=== PATIENT | male | born 1950 | race Caucasian/White ===

== ENCOUNTER 2019-12-14 19:25 | Inpatient (IN) | payer OTHER, MEDICARE, SELFPAY ==
[2019-12-14 19:36] VITALS: BP 92/55; PULSE 94; RESP 18; TEMP 36.8; O2SAT 91; BMI 15.6
--- NOTE | 2019-12-14 19:42 | ED_ITS ---
Entered by Sweta Gordon, acting as scribe for Rashim Ponce HPI - SOB/Dyspnea General: Chief Complaint: Shortness of Breath/Dyspnea Stated Complaint: SOB/COUGH Time Seen by Provider: 12/14/19 19:40 History of Present Illness: HPI Narrative: 69 yo m came to the er for shortness of breath and cough. Onset was today this afternoon Pt states that she has been wheezing, shortness of breath and cough. Pts family states that pt has had lunch cancer and is diabetic. Pt is cancer free at this time. Pt has oxygen at home as needed. Family states that pt gets pneumonia at least 3 times a year. MD elicited complaint: shortness of breath and cough Pertinent past history: other (feeding tube) Onset (ago): day(s) (today) Timing: constant Severity: mild Exacerbating factors: lying flat Relieving factors: oxygen and rest Associated symptoms: Reports orthopnea and other (wheezing); Deny abdominal pain, chest congestion, chest pain, diaphoresis, dizziness, extremity pain, fever(s), hemoptysis, nausea, palpitations, polydipsia, syncope or vomiting Related Data: Home oxygen amount: as needed at night Review of Systems General: Reports: other (negative unless marked) Const: Denies: fever, chills, body aches, fatigue, malaise or diaphoresis Eyes: Denies: change in vision or blurry vision ENMT: Denies: throat pain, painful swallowing, hoarseness, ear pain, ear discharge, Change in hearing or nasal discharge Card: Reports: shortness of breath on exertion and shortness of breath when lying down; Denies: chest pain, palpitations, irregular heart rhythm, syncope or pre-syncope Resp: Reports: shortness of breath, productive cough and wheezing; Denies: non-productive cough, coughing up blood or chest congestion GI: Denies: abdominal pain, nausea, vomiting, vomiting blood, coffee grounds in vomit, diarrhea, constipation, cramping, blood in stool or black tarry stool : Denies: flank pain, difficulty urinating, painful urination, urinary frequency, urinary urgency, decreased urine ouput, urinary incontinence or blood in urine Musc: Denies: neck pain, back pain, extremity pain, extremity swelling, joint pain, joint swelling, joint warmth or joint stiffness Skin/Breast: Denies: rash, skin tenderness or yellow skin Neuro: Denies: headache, numbness in extremities, weakness in extremities, changes in sensation, lack of coordination, difficulty walking, dizziness, vertigo or confusion Endo: Denies: excessive thirst, tired all the time, cold intolerance, excessive sweating, flushing or hot flashes Manan/Lymph: Denies: easy bruising, easy bleeding, petechiae or enlarged lymph nodes All/Imm: Denies: hives, throat swelling, tongue swelling, facial swelling or acute wheezing PFSH ED PFSH: Statuses (acute, chronic, etc) shown below reflect problem list status as previously entered and may not be historically accurate Social History Smoking and tobacco status: never smoked Physical Exam Const: COMMON NORMALS: oriented x3, no limitations, healthy appearing and well nourished; apparent distress EXAM LIMITATIONS: no altered mental status GENERAL APPEARANCE: cooperative, well kempt and well developed ORIENTATION/CONSCIOUSNESS: Yes awake HENMT: COMMON NORMALS: normocephalic, head/scalp atraumatic, hearing grossly normal bilaterally, external ears normal, EAC's normal, external nose normal and moist oral mucous membranes HEAD & SCALP: normal to inspection, normocephalic and atraumatic FACE & SINUS: normal facial exam and face symmetric NOSE: external nose normal and nares normal EXTERNAL EAR: Yes external ears normal EXTERNAL AUDITORY CANAL: EAC's normal MOUTH: oral and palatal mucosa normal and tongue normal Eye: COMMON NORMALS: PERRL, EOMs intact bilaterally, conjunctivae normal and no scleral icterus GENERAL EYE: normal appearance of both eyes and normal light reflex CONJUNCTIVA: Yes conjunctivae normal SCLERA: sclerae normal CORNEA: Yes corneas normal PUPIL: Yes PERRL DIRECT OPHTHALMOSCOPY: Yes normal light reflex Neck/C-Spine: COMMON NORMALS: full ROM, no lymphadenopathy, supple, no meningeal signs and no JVD GENERAL: Yes normal visual inspection and Yes trachea midline CERVICAL SPINE: Yes cervical ROM normal Chest: COMMONS NORMALS: inspection of chest normal and palpation of chest normal Resp: EFFORT & INSPECTION: Yes labored, Yes retractions and Yes uses accessory muscles AUSCULTATION: rhonchi and wheezes Cardio: COMMON NORMALS: no JVD, regular rate, regular rhythm, S1 normal heart sound, S2 normal heart sound, no gallops, no clicks, no murmurs and no rub JUGULAR VENOUS DISTENTION: no JVD RATE: regular rate RHYTHM: regular rhythm HEART SOUNDS: S1 normal and S2 normal GI: COMMON NORMALS: soft to palpation, non-tender, no hepatosplenomegaly and no masses INSPECTION: Yes normal to inspection PALPATION: Yes soft and Yes no hepatosplenomegaly : COMMON NORMALS: Yes no CVA tenderness BLADDER/KIDNEY EXAM: Yes no CVA tenderness Back/Pelvis: COMMON NORMALS: no CVA tenderness, thoracic and lumbar spine normal to inspection, no thoracic nor lumbar tenderness and thoraco-lumbar ROM normal Extremity: COMMON NORMALS: normal to inspection, full ROM, normal capillary refill, no joint enlargement, no clubbing, cyanosis or edema and no calf tenderness Neuro: COMMON NORMALS: oriented x3, CN's II-XII intact bilaterally, moves all extremities, no focal motor deficits and no sensory deficits noted MENINGEAL SIGNS: Yes no meningeal signs Psych: COMMON NORMALS: mental status grossly normal, thought process normal, cooperative, affect normal, speech normal and activity/motor behavior normal APPEARANCE: Yes well kempt SPEECH: Yes normal speech THOUGHT PROCESS: normal thought process Skin: COMMON NORMALS: no rashes or lesions noted, skin turgor normal, no jaundice, no petechiae and no mottling GENERAL SKIN EXAM: no rashes or lesions noted and turgor normal Course Vital Signs: Vital signs: Vital Signs Temperature 97.2 F L 12/15/19 03:39 Pulse Rate 64 12/15/19 03:39 Respiratory Rate 16 12/15/19 03:39 Blood Pressure 95/50 12/15/19 03:39 Pulse Oximetry 94 12/15/19 03:39 MDM - SOB/Dyspnea MDM Narrative: Medical decision making narrative: 11:57 -the patient is markedly better after breathing treatments and steroids. His fever has subsided. His CT scan was reviewed with Dr. Kerns who states that the patient has no belly pain, which he does not, this is likely a chronic finding and nothing needs to be done about his CT of his abdomen. The patient may have recurrent malignancy in his lungs but also has at least a COPD exacerbation and probable secondary pneumonia. At this time he is much better and his blood pressure is improved. We will continue IV fluids, antibiotics and breathing treatments for him in the hospital. Lab Data: Attestation: I reviewed the patient's lab results. Labs: Lab Results 12/14/19 12/14/19 12/14/19 Range/Units 20:01 20:01 20:05 WBC 14.3 H (4.0-10.0) 10^3/ uL RBC 3.73 L (4.1-5.3) 10^6/u L Hgb 11.6 L (11.7-16.6) g/dL Hct 35.5 L (42.0-52.0) % MCV 95.2 H (80-94) fL MCH 31.1 (28.0-34.0) pg MCHC 32.7 (30.0-36.0) g/dL RDW 13.0 (12.1-15.1) % Plt Count 215 (130-400) 10^3/c mm MPV 10.2 (7.4-10.4) fL Neut % (Auto) 84.7 % Lymph % (Auto) 10.0 % Williamson % (Auto) 4.7 % Eos % (Auto) 0.1 % Baso % (Auto) 0.2 % Neut # (Auto) 12.1 H (1.8-7.7) 10^3/u L Lymph # (Auto) 1.4 (0.8-4.8) 10^3/u L Williamson # (Auto) 0.7 (0.2-0.9) 10^3/u L Eos # (Auto) 0.0 (0.0-0.8) 10^3/u L Baso # (Auto) 0.0 (0.0-0.1) 10^3/u L Nucleated RBC % (a uto) 0 % Nucleated RBCs # 0.0 /100WBC Sodium 128 L (136-145) mmol/L Potassium 5.1 (3.5-5.1) mmol/L Chloride 89 L (98-107) mmol/L Carbon Dioxide 28 (22-29) mmol/L Anion Gap 16.1 (5-19) BUN 19 (8-23) mg/dL Creatinine 0.7 (0.7-1.2) mg/dL GFR Calculation 111.5 (90-130) mL/min Glucose 164 H (74-106) mg/dL Lactic Acid 1.1 (0.5-2.2) mmol/L Calcium 9.9 (8.8-10.2) mg/Dl Total Bilirubin 0.5 (0.15-1.2) mg/dL AST 24 (0-40) U/L ALT 15 (0-41) U/L Alkaline Phosphata se 106 (40-130) IU/L Troponin T Baselin e (0-15) ng/mL Troponin T 120 Min [place] (0-15) ng/mL Delta Troponin T (0-10) ABS# Total Protein 7.8 (6.6-8.7) g/dL Albumin 3.9 (3.5-5.2) g/dL Globulin 3.9 (1.3-4.6) g/dL Urine Color (Yellow) Urine Appearance (CLEAR) Urine pH (5-7) Ur Specific Gravit y (1.005-1.030) Urine Protein (Negative) Urine Glucose (UA) (Normal) Urine Ketones (Negative) Urine Occult Blood (Negative) Urine Nitrate (Negative) Urine Bilirubin (NEGATIVE) Urine Urobilinogen (Negative) mg/dL Ur Leukocyte Suly ase (Negative) Urine RBC (0-2) /hpf Urine WBC (0-5) /hpf Ur Squamous Epith Cells (0-5) Urine Bacteria (NONE) Influenza Type A A g (Negative) POC Influenza B Ag (Negative) 12/14/19 12/14/19 12/14/19 Range/Units 20:05 22:00 22:17 WBC (4.0-10.0) 10^3/ uL RBC (4.1-5.3) 10^6/u L Hgb (11.7-16.6) g/dL Hct (42.0-52.0) % MCV (80-94) fL MCH (28.0-34.0) pg MCHC (30.0-36.0) g/dL RDW (12.1-15.1) % Plt Count (130-400) 10^3/c mm MPV (7.4-10.4) fL Neut % (Auto) % Lymph % (Auto) % Williamson % (Auto) % Eos % (Auto) % Baso % (Auto) % Neut # (Auto) (1.8-7.7) 10^3/u L Lymph # (Auto) (0.8-4.8) 10^3/u L Williamson # (Auto) (0.2-0.9) 10^3/u L Eos # (Auto) (0.0-0.8) 10^3/u L Baso # (Auto) (0.0-0.1) 10^3/u L Nucleated RBC % (a uto) % Nucleated RBCs # /100WBC Sodium (136-145) mmol/L Potassium (3.5-5.1) mmol/L Chloride (98-107) mmol/L Carbon Dioxide (22-29) mmol/L Anion Gap (5-19) BUN (8-23) mg/dL Creatinine (0.7-1.2) mg/dL GFR Calculation (90-130) mL/min Glucose (74-106) mg/dL Lactic Acid (0.5-2.2) mmol/L Calcium (8.8-10.2) mg/Dl Total Bilirubin (0.15-1.2) mg/dL AST (0-40) U/L ALT (0-41) U/L Alkaline Phosphata se (40-130) IU/L Troponin T Baselin e 18 H (0-15) ng/mL Troponin T 120 Min [place] 17.92 H (0-15) ng/mL Delta Troponin T -0.08 L (0-10) ABS# Total Protein (6.6-8.7) g/dL Albumin (3.5-5.2) g/dL Globulin (1.3-4.6) g/dL Urine Color Yellow (Yellow) Urine Appearance Clear (CLEAR) Urine pH 7 (5-7) Ur Specific Gravit y 1.010 (1.005-1.030) Urine Protein Neg (Negative) Urine Glucose (UA) Norm (Normal) Urine Ketones Negative (Negative) Urine Occult Blood Neg (Negative) Urine Nitrate Negative (Negative) Urine Bilirubin Neg (NEGATIVE) Urine Urobilinogen Norm (Negative) mg/dL Ur Leukocyte Suly ase Negative (Negative) Urine RBC Rare (0-2) /hpf Urine WBC Rare (0-5) /hpf Ur Squamous Epith Cells Rare (0-5) Urine Bacteria Trace (NONE) Influenza Type A A g (Negative) POC Influenza B Ag (Negative) 12/14/19 Range/Units 22:17 WBC (4.0-10.0) 10^3/ uL RBC (4.1-5.3) 10^6/u L Hgb (11.7-16.6) g/dL Hct (42.0-52.0) % MCV (80-94) fL MCH (28.0-34.0) pg MCHC (30.0-36.0) g/dL RDW (12.1-15.1) % Plt Count (130-400) 10^3/c mm MPV (7.4-10.4) fL Neut % (Auto) % Lymph % (Auto) % Williamson % (Auto) % Eos % (Auto) % Baso % (Auto) % Neut # (Auto) (1.8-7.7) 10^3/u L Lymph # (Auto) (0.8-4.8) 10^3/u L Williamson # (Auto) (0.2-0.9) 10^3/u L Eos # (Auto) (0.0-0.8) 10^3/u L Baso # (Auto) (0.0-0.1) 10^3/u L Nucleated RBC % (a uto) % Nucleated RBCs # /100WBC Sodium (136-145) mmol/L Potassium (3.5-5.1) mmol/L Chloride (98-107) mmol/L Carbon Dioxide (22-29) mmol/L Anion Gap (5-19) BUN (8-23) mg/dL Creatinine (0.7-1.2) mg/dL GFR Calculation (90-130) mL/min Glucose (74-106) mg/dL Lactic Acid (0.5-2.2) mmol/L Calcium (8.8-10.2) mg/Dl Total Bilirubin (0.15-1.2) mg/dL AST (0-40) U/L ALT (0-41) U/L Alkaline Phosphata se (40-130) IU/L Troponin T Baselin e (0-15) ng/mL Troponin T 120 Min [place] (0-15) ng/mL Delta Troponin T (0-10) ABS# Total Protein (6.6-8.7) g/dL Albumin (3.5-5.2) g/dL Globulin (1.3-4.6) g/dL Urine Color (Yellow) Urine Appearance (CLEAR) Urine pH (5-7) Ur Specific Gravit y (1.005-1.030) Urine Protein (Negative) Urine Glucose (UA) (Normal) Urine Ketones (Negative) Urine Occult Blood (Negative) Urine Nitrate (Negative) Urine Bilirubin (NEGATIVE) Urine Urobilinogen (Negative) mg/dL Ur Leukocyte Suly ase (Negative) Urine RBC (0-2) /hpf Urine WBC (0-5) /hpf Ur Squamous Epith Cells (0-5) Urine Bacteria (NONE) Influenza Type A A g Negative (Negative) POC Influenza B Ag Negative (Negative) Imaging Data^: CXR: Radiologist's impression: [place] [address] XRay Report Signed Patient: Shawanda Weeks #: [id number] : 9Acct#:[id number] Age/Sex: 69 / MADM Date: 12/14/19 Loc: ERRoom/Bed: Attending Dr: Ordering Provider/Ordering MD: Rashmi Ponce DO Date of Service: 12/14/19 Procedure(s): XR chest 1V portable [id number] Accession Number(s): [id number] Report Number: [id number] PROCEDURE INFORMATION: Exam: XR Chest, 1 View Exam date and time: 12/14/2019 8:25 PM Age: 69 years old Clinical indication: Shortness of breath; Patient HX: SOA, weakness; HX of lung cancer; Additional info: Cough TECHNIQUE: Imaging protocol: XR of the chest Views: 1 view. COMPARISON: CR (CHEST, ) 11/07/2019 9:57 AM FINDINGS: Lungs: There is a circumscribed parenchymal density in the left lateral chest between the 7th and 8th posterior ribs measuring 40 mm x 29 mm. This finding is new since prior study and may reflect pneumonia Pleural space: Unremarkable. No pleural effusion. No pneumothorax. Heart/Mediastinum: Unremarkable. No cardiomegaly. Bones/joints: Metallic surgical hardware is seen in the cervical spine Dilated bowel loops are seen in the subdiaphragmatic tissues XR/XR chest 1V portable [id number] IMPRESSION: Parenchymal density left lateral chest possible pneumonia Metallic hardware cervical spine Dictated By:Emir Ricks Signed By:Anirudh Ricks Date/Time:12/14/192055 DD/ 53 Other Imaging: Radiologist's impression: [facility] [address] [place] [address] CT Scan Report Signed Patient: Shawanda Weeks JR Unit #: [id number] : [id number] Age/Sex: 69 / M ADM Date: 12/14/19 Loc: ER Room/Bed: Attending Dr: Ordering Provider/Ordering MD: Rashmi Ponce DO Date of Service: 12/14/19 Procedure(s): CT chest abd pel w con* Accession Number(s): [id number] Report Number: [id number] PROCEDURE INFORMATION: Exam: CT Chest With Contrast Exam date and time: 12/14/2019 9:19 PM Age: 69 years old Clinical indication: Abdominal pain; Generalized; Other: Cough TECHNIQUE: Imaging protocol: Computed tomography of the chest with intravenous contrast. Total DLP: 1177.98 mGy-cm Radiation optimization: All CT scans at this facility use at least one of these dose optimization techniques: automated exposure control; mA and/or kV adjustment per patient size (includes targeted exams where dose is matched to clinical indication); or iterative reconstruction. Contrast material: VISI; Contrast volume: 95 ml; Contrast route: IV; COMPARISON: CT Abdomen/Pelvis Renal [id number] 03/16/2019 10:[address] chest w con* [id number] 12/10/2018 12:10:[address] chest w con* [id number] 06/28/2019 12:23:55 PM FINDINGS: Lungs: There are extensive diffuse tree-in-bud type nodular opacities at both lung bases and in the right middle lobe which have increased from the previous examination. This could represent worsening infectious bronchiolitis. Correlation with clinical findings is suggested. There is also some focal nodular consolidation in the posterior left lower lobe near the costophrenic angle not significantly changed from the previous examination. As this is not changed and also appears hot on the PET scan from September this is worrisome for malignancy. There is also a 1.8 cm sized peripheral irregular masslike density along the left chest wall, new compared with 06/28/2019 and hot on the PET scan. This is larger than on September and is worrisome for malignancy. There is a new irregular masslike area of consolidation in the superior segment of left lower lobe measuring 3.5 x 1.1 cm which corresponds with the new density in the chest radiograph. This could represent an area of pneumonia, however given the other malignant findings this could also represent malignancy. Follow-up is recommended to document resolution with treatment. There is some focal scarring in the medial aspect of the left apex which is stable compared with earlier examinations and may be related to prior radiation. Pleural space: Unremarkable. No pneumothorax. No pleural effusion. Heart: Unremarkable. No cardiomegaly. No pericardial effusion. Aorta: Unremarkable. No aortic aneurysm. Lymph nodes: There is no mediastinal or hilar adenopathy. Bones/joints: Unremarkable. No acute fracture. Soft tissues: See Lungs Finding. IMPRESSION: 1. New masslike area of consolidation in the left lower lobe corresponding with chest radiograph. Is uncertain whether this represents pneumonia, or additional malignancy. 2. Increasing tree-in-bud type nodular opacities which could represent worsening bronchiolitis versus bronchial via large spread of tumor. 3. Stable nodular consolidations in the posterior left lower lobe worrisome for malignancy. 4. Enlarging pleural-based mass in the lateral aspect of the left lower lobe worrisome for malignancy. PROCEDURE INFORMATION: Exam: CT Abdomen And Pelvis With Contrast Exam date and time: 12/14/2019 9:19 PM Age: 69 years old Clinical indication: Abdominal pain; Generalized; Other: Cough TECHNIQUE: Imaging protocol: Computed tomography of the abdomen and pelvis with intravenous contrast. Total DLP: 1177.98 mGy-cm Radiation optimization: All CT scans at this facility use at least one of these dose optimization techniques: automated exposure control; mA and/or kV adjustment per patient size (includes targeted exams where dose is matched to clinical indication); or iterative reconstruction. Contrast material: VISI; Contrast volume: 95 ml; Contrast route: IV; COMPARISON: CT Abdomen/Pelvis Renal [id number] 03/16/2019 10:06 PM FINDINGS: Liver: Normal. No mass. Gallbladder and bile ducts: There is a calcified gallstone within the gallbladder Pancreas: The pancreas is normal. Spleen: The spleen is normal. Adrenals: The adrenal glands are normal. Kidneys and ureters: There are benign-appearing parapelvic cysts in both kidneys, the largest measuring 1.9 cm on the right. There is also a 2.6 x 1.4 cm sized cyst arising from the posterior aspect of the left kidney Stomach and bowel: There is gastrostomy tube with its tip in the stomach. There is no evidence of intestinal obstruction. Appendix: Not identified. Intraperitoneal space: There is marked swirling in the mesentery in an anti clockwise direction such as a whirlpool sign. This sign may be seen in association with malrotation and volvulus. Without evidence for bowel obstruction or vascular compromise this finding may not have pathologic significance. Correlation with clinical findings is suggested. Vasculature: The aorta demonstrates moderate atherosclerotic calcification. There is no evidence of an abdominal aortic aneurysm. There is no evidence of dissection, leak, rupture, or other acute vascular pathology. Lymph nodes: Unremarkable. No enlarged lymph nodes. Bladder: Unremarkable as visualized. Reproductive: Unremarkable as visualized. Bones/joints: The lumbar spine demonstrates moderate degenerative changes at multiple levels. Soft tissues: Compared with 03/16/2019 there has been further decrease in body fat representing significant weight loss. CT/CT chest abd pel w con* IMPRESSION: 1. Mesenteric swirling without evidence of obstruction. 2. No acute finding 3. Weight loss Radiation Dose CTDIVOL = (mGy): DLP = 1177.98 1177.98 (mGy-cm) Dictated By: Noé Long Signed By: Noé Long Signed Date/Time: 12/14/192235 DD/ [address]: Radiologist's impression: [address] [address] [address] Scan Report Signed Patient: Shawanda Weeks #: [id number] : 9Acct#:[id number] Age/Sex: 69 / MADM Date: 12/14/19 Loc: ERRoom/Bed: Attending Dr: Ordering Provider/Ordering MD: Rashmi Ponce DO Date of Service: 12/14/19 Procedure(s): CT chest abd pel w con* Accession Number(s): [id number] Report Number: [id number] PROCEDURE INFORMATION: Exam: CT Chest With Contrast Exam date and time: 12/14/2019 9:19 PM Age: 69 years old Clinical indication: Abdominal pain; Generalized; Other: Cough TECHNIQUE: Imaging protocol: Computed tomography of the chest with intravenous contrast. Total DLP: 1177.98 mGy-cm Radiation optimization: All CT scans at this facility use at least one of these dose optimization techniques: automated exposure control; mA and/or kV adjustment per patient size (includes targeted exams where dose is matched to clinical indication); or iterative reconstruction. Contrast material: VISI; Contrast volume: 95 ml; Contrast route: IV; COMPARISON: CT Abdomen/Pelvis Renal [id number] 03/16/2019 10:[address] chest w con* [id number] 12/10/2018 12:10:[address] chest w con* [id number] 06/28/2019 12:23:55 PM FINDINGS: Lungs: There are extensive diffuse tree-in-bud type nodular opacities at both lung bases and in the right middle lobe which have increased from the previous examination. This could represent worsening infectious bronchiolitis. Correlation with clinical findings is suggested. There is also some focal nodular consolidation in the posterior left lower lobe near the costophrenic angle not significantly changed from the previous examination. As this is not changed and also appears hot on the PET scan from September this is worrisome for malignancy. There is also a 1.8 cm sized peripheral irregular masslike density along the left chest wall, new compared with 06/28/2019 and hot on the PET scan. This is larger than on September and is worrisome for malignancy. There is a new irregular masslike area of consolidation in the superior segment of left lower lobe measuring 3.5 x 1.1 cm which corresponds with the new density in the chest radiograph. This could represent an area of pneumonia, however given the other malignant findings this could also represent malignancy. Follow-up is recommended to document resolution with treatment. There is some focal scarring in the medial aspect of the left apex which is stable compared with earlier examinations and may be related to prior radiation. Pleural space: Unremarkable. No pneumothorax. No pleural effusion. Heart: Unremarkable. No cardiomegaly. No pericardial effusion. Aorta: Unremarkable. No aortic aneurysm. Lymph nodes: There is no mediastinal or hilar adenopathy. Bones/joints: Unremarkable. No acute fracture. Soft tissues: See Lungs Finding. IMPRESSION: 1. New masslike area of consolidation in the left lower lobe corresponding with chest radiograph. Is uncertain whether this represents pneumonia, or additional malignancy. 2. Increasing tree-in-bud type nodular opacities which could represent worsening bronchiolitis versus bronchial via large spread of tumor. 3. Stable nodular consolidations in the posterior left lower lobe worrisome for malignancy. 4. Enlarging pleural-based mass in the lateral aspect of the left lower lobe worrisome for malignancy. PROCEDURE INFORMATION: Exam: CT Abdomen And Pelvis With Contrast Exam date and time: 12/14/2019 9:19 PM Age: 69 years old Clinical indication: Abdominal pain; Generalized; Other: Cough TECHNIQUE: Imaging protocol: Computed tomography of the abdomen and pelvis with intravenous contrast. Total DLP: 1177.98 mGy-cm Radiation optimization: All CT scans at this facility use at least one of these dose optimization techniques: automated exposure control; mA and/or kV adjustment per patient size (includes targeted exams where dose is matched to clinical indication); or iterative reconstruction. Contrast material: VISI; Contrast volume: 95 ml; Contrast route: IV; COMPARISON: CT Abdomen/Pelvis Renal [id number] 03/16/2019 10:06 PM FINDINGS: Liver: Normal. No mass. Gallbladder and bile ducts: There is a calcified gallstone within the gallbladder Pancreas: The pancreas is normal. Spleen: The spleen is normal. Adrenals: The adrenal glands are normal. Kidneys and ureters: There are benign-appearing parapelvic cysts in both kidneys, the largest measuring 1.9 cm on the right. There is also a 2.6 x 1.4 cm sized cyst arising from the posterior aspect of the left kidney Stomach and bowel: There is gastrostomy tube with its tip in the stomach. There is no evidence of intestinal obstruction. Appendix: Not identified. Intraperitoneal space: There is marked swirling in the mesentery in an anti clockwise direction such as a whirlpool sign. This sign may be seen in association with malrotation and volvulus. Without evidence for bowel obstruction or vascular compromise this finding may not have pathologic significance. Correlation with clinical findings is suggested. Vasculature: The aorta demonstrates moderate atherosclerotic calcification. There is no evidence of an abdominal aortic aneurysm. There is no evidence of dissection, leak, rupture, or other acute vascular pathology. Lymph nodes: Unremarkable. No enlarged lymph nodes. Bladder: Unremarkable as visualized. Reproductive: Unremarkable as visualized. Bones/joints: The lumbar spine demonstrates moderate degenerative changes at multiple levels. Soft tissues: Compared with 03/16/2019 there has been further decrease in body fat representing significant weight loss. CT/CT chest abd pel w con* IMPRESSION: 1. Mesenteric swirling without evidence of obstruction. 2. No acute finding 3. Weight loss Radiation Dose CTDIVOL = (mGy): DLP = 1177.98~1177.98 (mGy-cm) Dictated By:Noé Long Signed By:Rogelio Longigned Date/Time:12/14/192235 DD/ 34 EKG Data^: EKG 1: Attestation: I personally reviewed and interpreted this EKG as follows: (EKG performed and read at 1956?normal sinus rhythm at 96 beats a minute, nonspecific ST and T wave changes, no acute findings.) EKG 2: Attestation: I personally reviewed and interpreted this EKG as follows: (EKG performed and read at 2158?normal sinus rhythm at 98 beats a minute, nonspecific ST and T wave changes. No acute findings.) Discharge Plan Discharge Patient Disposition: Admitted As Inpatient Admit Provider: Alejandra Rosa Clinical Impression: Acute exacerbation of chronic obstructive airways disease, Community acquired pneumonia Condition: Stable Referrals: Leonel Abbasi [Family Provider] - Discharge Date/Time: 12/15/19 01:17 Coding Level of Care Code ED Research Nutritionist for Chg Fwd Exam Problem Focused The documentation recorded by the Evan torres Stephanie Lyn, accurately reflects the service I personally performed and the decisions made by , Rashmi Ghosh Dec 14, 2019 19:25
--- NOTE | 2019-12-14 19:45 | XRR_ITS ---
PROCEDURE INFORMATION: Exam: XR Chest, 1 View Exam date and time: 12/14/2019 8:25 PM Age: 69 years old Clinical indication: Shortness of breath; Patient HX: SOA, weakness; HX of lung cancer; Additional info: Cough TECHNIQUE: Imaging protocol: XR of the chest Views: 1 view. COMPARISON: CR (CHEST, ) 11/07/2019 9:57 AM FINDINGS: Lungs: There is a circumscribed parenchymal density in the left lateral chest between the 7th and 8th posterior ribs measuring 40 mm x 29 mm. This finding is new since prior study and may reflect pneumonia Pleural space: Unremarkable. No pleural effusion. No pneumothorax. Heart/Mediastinum: Unremarkable. No cardiomegaly. Bones/joints: Metallic surgical hardware is seen in the cervical spine Dilated bowel loops are seen in the subdiaphragmatic tissues XR/XR chest 1V portable [id number] IMPRESSION: Parenchymal density left lateral chest possible pneumonia Metallic hardware cervical spine
--- NOTE | 2019-12-14 19:46 | ECG_ITS ---
Measurements Intervals [place] Rate: 96 P: 65 [place]: 161 QRS: 36 QRSD: 66 T: 66 QT: 315 QTc: 400 SINUS RHYTHM LOW QRS VOLTAGE IN EXTREMITY LEADS [QRS DEFLECTION < 0.5 mV IN LIMB LEADS] INTERPRETATION BASED ON A DEFAULT AGE OF 40 YEARS Compared to ECG 10/26/2019 16:23:06 Sinus tachycardia no longer present Electronically Signed On 12-15-2019 9:23:54 PRODUCT DEVELOPMENT INTERN by Zeke Sky M.D. [id number] f
[2019-12-14] MEDS: ipratropium-albuterol 3 mL Neb 9 ML INHALATION (20:05)
[2019-12-14 20:06] VITALS: PULSE 98; RESP 18; O2SAT 98
[2019-12-14] MEDS: ondansetron 2 mg/ML SDV 2 mL 4 MG IVP (20:06)
[2019-12-14] MEDS: sodium chloride 0.9% 1,000 ML 999 ML IV (20:06)
--- NOTE | 2019-12-14 20:11 | PC.NURSE ---
Introduced self to patient and initiated vital signs. Pt is A&O x 4 and agreeable. Pt states that the reason for the ER visit today is due to general sickness and malaise. Reassured patient of needs and will continue to monitor. Awaiting provider at bedside.
[2019-12-14 20:14] VITALS: PULSE 87; RESP 18; O2SAT 99
[2019-12-14 20:15] VITALS: BP 92/55; PULSE 78; RESP 16; O2SAT 96
[2019-12-14 20:15] LABS: Basophils % 0.2 %; Eosinophils % 0.1 %; Hematocrit 35.5 % (42.0-52.0); Hemoglobin 11.6 g/dL (11.7-16.6); Lymphocytes # 1.4 10^3/uL (0.8-4.8); Mean Corpuscular HGB Conc 32.7 g/dL (30.0-36.0); Mean Corpuscular Hemoglobin 31.1 pg (28.0-34.0); Mean Corpuscular Volume 95.2 fL (80-94); Mean Platelet Volume 10.2 fL (7.4-10.4); Monocytes # 0.7 10^3/uL (0.2-0.9); Monocytes % 4.7 %; Neutrophils # 12.1 10^3/uL (1.8-7.7); Neutrophils % 84.7 %; Nucleated Red Blood Cells % 0 %; Platelet Count 215 10^3/cmm (130-400); Red Blood Count 3.73 10^6/uL (4.1-5.3); White Blood Count 14.3 10^3/uL (4.0-10.0)
[2019-12-14 20:31] LABS: Lactic Sepsis W/Reflex 1.1 mmol/L (0.5-2.2); Troponin(5th) Baseline 18 ng/mL (0-15)
[2019-12-14 20:32] LABS: Alanine Aminotransferase 15 U/L (0-41); Albumin Level 3.9 g/dL (3.5-5.2); Alkaline Phosphatase 106 IU/L (40-130); Anion Gap 16.1 (5-19); Aspartate Amino Transferase 24 U/L (0-40); Blood Urea Nitrogen 19 mg/dL (8-23); Calcium 9.9 mg/Dl (8.8-10.2); Carbon Dioxide 28 mmol/L (22-29); Chloride 89 mmol/L (98-107); Globulin 3.9 g/dL (1.3-4.6); Glomerular Filtration Rate 111.5 mL/min (90-130); Glucose 164 mg/dL (74-106); Potassium 5.1 mmol/L (3.5-5.1); Sodium 128 mmol/L (136-145); Total Bilirubin 0.5 mg/dL (0.15-1.2); Total Protein 7.8 g/dL (6.6-8.7)
--- NOTE | 2019-12-14 20:56 | CTR_ITS ---
PROCEDURE INFORMATION: Exam: CT Chest With Contrast Exam date and time: 12/14/2019 9:19 PM Age: 69 years old Clinical indication: Abdominal pain; Generalized; Other: Cough TECHNIQUE: Imaging protocol: Computed tomography of the chest with intravenous contrast. Total DLP: 1177.98 mGy-cm Radiation optimization: All CT scans at this facility use at least one of these dose optimization techniques: automated exposure control; mA and/or kV adjustment per patient size (includes targeted exams where dose is matched to clinical indication); or iterative reconstruction. Contrast material: VISI; Contrast volume: 95 ml; Contrast route: IV; COMPARISON: CT Abdomen/Pelvis Renal [id number] 03/16/2019 10:[address] chest w con* [id number] 12/10/2018 12:10:[address] chest w con* [id number] 06/28/2019 12:23:55 PM FINDINGS: Lungs: There are extensive diffuse tree-in-bud type nodular opacities at both lung bases and in the right middle lobe which have increased from the previous examination. This could represent worsening infectious bronchiolitis. Correlation with clinical findings is suggested. There is also some focal nodular consolidation in the posterior left lower lobe near the costophrenic angle not significantly changed from the previous examination. As this is not changed and also appears hot on the PET scan from September this is worrisome for malignancy. There is also a 1.8 cm sized peripheral irregular masslike density along the left chest wall, new compared with 06/28/2019 and hot on the PET scan. This is larger than on September and is worrisome for malignancy. There is a new irregular masslike area of consolidation in the superior segment of left lower lobe measuring 3.5 x 1.1 cm which corresponds with the new density in the chest radiograph. This could represent an area of pneumonia, however given the other malignant findings this could also represent malignancy. Follow-up is recommended to document resolution with treatment. There is some focal scarring in the medial aspect of the left apex which is stable compared with earlier examinations and may be related to prior radiation. Pleural space: Unremarkable. No pneumothorax. No pleural effusion. Heart: Unremarkable. No cardiomegaly. No pericardial effusion. Aorta: Unremarkable. No aortic aneurysm. Lymph nodes: There is no mediastinal or hilar adenopathy. Bones/joints: Unremarkable. No acute fracture. Soft tissues: See Lungs Finding. IMPRESSION: 1. New masslike area of consolidation in the left lower lobe corresponding with chest radiograph. Is uncertain whether this represents pneumonia, or additional malignancy. 2. Increasing tree-in-bud type nodular opacities which could represent worsening bronchiolitis versus bronchial via large spread of tumor. 3. Stable nodular consolidations in the posterior left lower lobe worrisome for malignancy. 4. Enlarging pleural-based mass in the lateral aspect of the left lower lobe worrisome for malignancy. PROCEDURE INFORMATION: Exam: CT Abdomen And Pelvis With Contrast Exam date and time: 12/14/2019 9:19 PM Age: 69 years old Clinical indication: Abdominal pain; Generalized; Other: Cough TECHNIQUE: Imaging protocol: Computed tomography of the abdomen and pelvis with intravenous contrast. Total DLP: 1177.98 mGy-cm Radiation optimization: All CT scans at this facility use at least one of these dose optimization techniques: automated exposure control; mA and/or kV adjustment per patient size (includes targeted exams where dose is matched to clinical indication); or iterative reconstruction. Contrast material: VISI; Contrast volume: 95 ml; Contrast route: IV; COMPARISON: CT Abdomen/Pelvis Renal [id number] 03/16/2019 10:06 PM FINDINGS: Liver: Normal. No mass. Gallbladder and bile ducts: There is a calcified gallstone within the gallbladder Pancreas: The pancreas is normal. Spleen: The spleen is normal. Adrenals: The adrenal glands are normal. Kidneys and ureters: There are benign-appearing parapelvic cysts in both kidneys, the largest measuring 1.9 cm on the right. There is also a 2.6 x 1.4 cm sized cyst arising from the posterior aspect of the left kidney Stomach and bowel: There is gastrostomy tube with its tip in the stomach. There is no evidence of intestinal obstruction. Appendix: Not identified. Intraperitoneal space: There is marked swirling in the mesentery in an anti clockwise direction such as a whirlpool sign. This sign may be seen in association with malrotation and volvulus. Without evidence for bowel obstruction or vascular compromise this finding may not have pathologic significance. Correlation with clinical findings is suggested. Vasculature: The aorta demonstrates moderate atherosclerotic calcification. There is no evidence of an abdominal aortic aneurysm. There is no evidence of dissection, leak, rupture, or other acute vascular pathology. Lymph nodes: Unremarkable. No enlarged lymph nodes. Bladder: Unremarkable as visualized. Reproductive: Unremarkable as visualized. Bones/joints: The lumbar spine demonstrates moderate degenerative changes at multiple levels. Soft tissues: Compared with 03/16/2019 there has been further decrease in body fat representing significant weight loss. CT/CT chest abd pel w con* IMPRESSION: 1. Mesenteric swirling without evidence of obstruction. 2. No acute finding 3. Weight loss Radiation Dose CTDIVOL = (mGy): DLP = 1177.98~1177.98 (mGy-cm)
[2019-12-14 21:15] VITALS: BP 94/55; PULSE 91; RESP 16; O2SAT 94
--- NOTE | 2019-12-14 21:46 | ECG_ITS ---
Measurements Intervals [place] Rate: 98 P: 64 TN: 165 QRS: 49 QRSD: 69 T: 53 QT: 337 QTc: 431 SINUS RHYTHM LOW QRS VOLTAGE IN EXTREMITY LEADS [QRS DEFLECTION < 0.5 mV IN LIMB LEADS] INTERPRETATION BASED ON A DEFAULT AGE OF 40 YEARS Compared to ECG 10/26/2019 16:23:06 Sinus tachycardia no longer present Electronically Signed On 12-15-2019 9:34:20 WIRE BRUSHER by Zeke Sky M.D. [id number]
[2019-12-14 22:26] VITALS: BP 95/61; PULSE 89; RESP 16; O2SAT 96
[2019-12-14] MEDS: sodium chloride 0.9% 1,360.77 ML 1360.8 ML IV (22:39)
[2019-12-14 22:40] LABS: Troponin 5 2HR 17.92 ng/mL (0-15)
[2019-12-14 22:41] LABS: Troponin 5 2HR Delta -0.08 ABS# (0-10)
[2019-12-14 22:48] LABS: Bacteria Urine TRACE; Bilirubin Urine Neg (NEGATIVE); Blood Urine Neg (Negative); Glucose Urine UA Norm (Normal); Ketones Urine Negative (Negative); Leukocyte Esterase Urine Negative (Negative); Nitrate Urine Negative (Negative); Protein Urine Neg (Negative); RBC Urine RARE /hpf (0-2); Squamous Epithelial Cell Urine RARE (0-5); Urine Appearance Clear (CLEAR); Urine Color Yellow (Yellow); Urobilinogen Urine Norm (Negative); WBC Urine RARE /hpf (0-5); pH Urine 7 (5-7)
[2019-12-14 22:54] LABS: Influenza A by IFA Negative (Negative); Influenza B by IFA Negative (Negative)
[2019-12-15] VITALS (10 sets, daily range): BP systolic 81–126; BP diastolic 44–86; PULSE 58–89; RESP 16–18; TEMP 36.2–37; O2SAT 94–100
[2019-12-15] MEDS: sodium chloride 0.9% 1,000 ML 150 ML IV ×3 (01:38→16:47)
--- NOTE | 2019-12-15 01:46 | ECG_ITS ---
Measurements Intervals [place] Rate: 70 P: 58 [place]: 173 QRS: 24 QRSD: 74 T: 48 QT: 384 QTc: 417 SINUS RHYTHM LOW QRS VOLTAGE IN EXTREMITY LEADS [QRS DEFLECTION < 0.5 mV IN LIMB LEADS] Compared to ECG 10/26/2019 16:23:06 Sinus tachycardia no longer present Electronically Signed On 12-15-2019 9:34:59 APPLICATIONS ANALYST by Zeke Sky M.D. [id number]
[2019-12-15 03:09] LABS: Troponin 5 6HR 13.05 ng/L (0-15)
[2019-12-15 03:13] LABS: Troponin 5 6HR Delta -4.95 ng/L (0-12)
--- NOTE | 2019-12-15 04:42 | P.HP_ITS ---
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 Patient was admitted to our facility in October for similar symptoms during which time he was treated for pneumonia with ceftriaxone and azithromycin and was discharged on a course of doxycycline. Patient has noted increased secretions but denies any fe lydia/chills. He states that he has been able to maintain his weight lately with his current tube feeding regimen. He follows up with Dr. Hassan for his history of cancer and per last note documented in October plan was to have a follow-up PET CT and to follow-up in the clinic in approximately 3 months. Work-up today in the ER indicates leukocytosis with a white count of 14.3, mild anemia with a hemoglobin of 11.6, sodium of 128, normal renal function, blood sugar of 166, lactic acid of 1.1. Chest x-ray and CT scan are concerning for left lower lobe consolidation as well as possible recurrence of lung cancer as evidenced by enlarging pleural based mass in the left lower lobe as well as a noted consolidation in the left lower lobe. Given his underlying state of immunocompromise, repeat infection within the past month we will treat him with more aggressive IV antibiotic treatment. He is mildly hypotensive, afebrile and not requiring supplemental oxygen currently. He has received IV steroids, 2 L normal saline boluses and will start him on broad-spectrum IV antibiotics with Zosyn and Levaquin. Review of Systems Const: Reports: fatigue and malaise; Denies: fever, chills, change in weight or diaphoresis Eyes: Denies: change in vision ENMT: Reports: other (increased oral secretions); Denies: dry mouth Card: Denies: chest pain, swelling of feet/ankles or lightheadedness Resp: Reports: shortness of breath; Denies: productive cough, non-productive cough or wheezing GI: Denies: abdominal pain, nausea, vomiting, vomiting blood, diarrhea or blood in stool : Denies: painful urination or urinary frequency Musc: Denies: back pain Skin/Breast: Denies: rash Neuro: Denies: numbness in extremities or weakness in extremities Psych: Denies: anxiety Medications/Allergies Allergies Allergy/AdvReac Type Severity Reaction Status Date / Time morphine Allergy ADR-Vomitin Verified 12/14/19 19:47 g PFSH Acute PFSH: Statuses (acute, chronic, etc) shown below reflect problem list status as previously entered and may not be historically accurate Medical History (Updated 12/15/19 @ 05:04 by Alejandra Rosa MD) Cancer (Acute) R tonsillar squamous cell carcinoma Cellulitis (Inactive) Diabetes mellitus (Acute) Emphysema of lung (Inactive) Gastritis (Inactive) Hypothyroidism (Inactive) Lung disease (Acute) MRSA (methicillin resistant Staphylococcus aureus) (Inactive) Thyroid disease (Inactive) Surgical History (Updated 12/15/19 @ 04:56 by Alejandra Rosa MD) History of gastrostomy tube placement (Inactive) History of neck surgery (Inactive) History of shoulder surgery (Inactive) Family History (Updated 12/15/19 @ 04:57 by Alejandra Rosa MD) Mother Cancer Lung cancer Other CAD (coronary artery disease) Diabetes Social History (Updated 12/15/19 @ 04:57 by Alejandra Rosa MD) Smoking and tobacco status: never smoked Alcohol intake: never Substance/Drug Use: never Lives independently: Yes Vitals/I&O/Wt Last Vital Signs Temp 97.2 F L 12/15/19 03:39 Pulse 64 12/15/19 03:39 Resp 16 12/15/19 03:39 BP 95/50 12/15/19 03:39 Pulse Ox 94 12/15/19 03:39 Weight last 48 hrs Weight 45.359 kg Physical Exam Const: COMMON NORMALS: no apparent distress and oriented x3 GENERAL APPEARANCE: cooperative and comfortable NUTRITIONAL APPEARANCE: cachectic ORIENTATION/CONSCIOUSNESS: Yes awake HENMT: COMMON NORMALS: normocephalic, head/scalp atraumatic and hearing grossly normal bilaterally HEAD & SCALP: normocephalic and atraumatic MOUTH: moist mucous membranes abnormal Details: parched Eye: COMMON NORMALS: PERRL, EOMs intact bilaterally and conjunctivae normal CONJUNCTIVA: Yes conjunctivae normal PUPIL: Yes PERRL Neck/C-Spine: COMMON NORMALS: full ROM GENERAL: Yes normal visual inspection and Yes trachea midline Chest: COMMONS NORMALS: inspection of chest normal Resp: COMMON NORMALS: normal respiratory effort, no retractions and no use of accessory muscles EFFORT & INSPECTION: Yes able to speak in complete sentences, Yes symmetric chest movement and No tachypneic AUSCULTATION: clear to auscultation bilaterally and diminished lung sounds bilateral Cardio: COMMON NORMALS: regular rate, regular rhythm, S1 normal heart sound, S2 normal heart sound and no murmurs RATE: regular rate RHYTHM: regular rhythm HEART SOUNDS: S1 normal and S2 normal GI: COMMON NORMALS: normal to inspection, nondistended, normoactive bowel sounds, soft to palpation and non-tender INSPECTION: Yes scaphoid PALPA TION: Yes soft OTHER: PEG tube in place on LUQ Extremity: COMMON NORMALS: normal to inspection, full ROM and no clubbing, cyanosis or edema; negative for no pedal edema Neuro: COMMON NORMALS: oriented x3, moves all extremities, no focal motor deficits and no sensory deficits noted Psych: COMMON NORMALS: mental status grossly normal, thought process normal, cooperative, affect normal and speech normal SPEECH: Yes normal speech THOUGHT PROCESS: normal thought process Skin: COMMON NORMALS: no rashes or lesions noted, no jaundice, no petechiae and no mottling GENERAL SKIN EXAM: no rashes or lesions noted Data : 12/14/19 20:01 12/14/19 20:01 Micro: Microbiology 12/14/19 20:05 Blood Culture - Preliminary Blood SPECIMEN COLLECTED 12/14/19 20:01 Blood Culture - Preliminary Blood SPECIMEN COLLECTED A&P Assessment and plan (1) Pneumonia: -Noted no evidence of infection involving the left lower lobe on imaging including CT scan of the chest -Has prior episode of pneumonia in October so will treat more aggressively with IV vancomycin and Zosyn -Noted leukocytosis, currently afebrile, continue to trend WBC -Supplemental oxygen as needed -Close monitoring of respiratory status -Follow-up blood culture -screen for legionella, MRSA, influenza -Monitor vital signs, initially hypotensive but seems to have responded to IVF bolus. Continue maintanance IVF Status: Acute Qualifiers: Pneumonia type: due to unspecified organism Laterality: left Lung location: lower lobe of lung Qualified Code(s): J18.9 - Pneumonia, unspecified organism Code(s): J18.9 - Pneumonia, unspecified organism (2) Cancer: -has hx of R tonsilar squamous cell carcinoma s/p chemo as well as NSCLC of RUL s/p chemo and radiation -Concern for possible recurrence based on CT chest findings -Need to follow-up with oncology Status: Acute Code(s): C80.1 - Malignant (primary) neoplasm, unspecified (3) COPD (chronic obstructive pulmonary disease): -has known hx of COPD -uses 2 L NC at home PRN Status: Acute Qualifiers: COPD type: unspecified COPD Qualified Code(s): J44.9 - Chronic obstructive pulmonary disease, unspecified Code(s): J44.9 - Chronic obstructive pulmonary disease, unspecified Additional A&P Information -Cachexia, at least moderate protein calorie malnutrition: BMI-15 kg/m2 -Chronic dysphagia, has PEG tube in place; resume tube feeding. 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 Accuchecks, low dose ISS -Hyperlipidemia -GERD -GI ppx with PPI -DVT ppx with Lovenox -pain control as needed -ambulate as tolerated -Dispo: home -Code status: FULL code Attestations Medical Necessity Statement*: Shawanda Weeks JR's hospital stay will require greater than 2 midnights for management of left-sided pneumonia in immunocompromised condition requiring aggressive IV antibiotics and close monitoring of hemodynamic and respiratory status. Time Spent in Patient Care: Greater than 35 minutes (>than 50% of time spent in counselling and/or direct pt care on unit) . Coding Level of Care Code Acute Outdoor Studies Professor for Chg Fwd Diagnoses Pneumonia J18.9 Pneumonia type: due to unspecified organism Laterality: left Lung location: lower lobe of lung Cancer C80.1 COPD (chronic obstructive pulmonary disease) J44.9 COPD type: unspecified COPD
[2019-12-15] MEDS: levofloxacin-dextrose 5 % 750 MG/150 ML PREMIX 150 MG IV (05:10)
[2019-12-15] MEDS: enoxaparin 30 mg/0.3 mL Syringe SUBCUT (05:34)
[2019-12-15 06:42] LABS: Glucose Point of Care 270 mg/dL (70-110)
[2019-12-15] MEDS: piperacillin-tazobactam 3.375 GM in sodium chloride 0.9% (plus) 50 ML IV ×3 (06:47→21:35)
[2019-12-15 06:56] LABS: Anion Gap 18.5 (5-19); Blood Urea Nitrogen 14 mg/dL (8-23); Calcium 9.2 mg/Dl (8.8-10.2); Carbon Dioxide 21 mmol/L (22-29); Chloride 100 mmol/L (98-107); Glomerular Filtration Rate 164.4 mL/min (90-130); Glucose 274 mg/dL (74-106); Potassium 4.5 mmol/L (3.5-5.1); Sodium 135 mmol/L (136-145)
[2019-12-15 07:07] LABS: Basophils % 0.1 %; Hemoglobin 10.8 g/dL (11.7-16.6); Lymphocytes # 0.9 10^3/uL (0.8-4.8); Mean Corpuscular HGB Conc 31.8 g/dL (30.0-36.0); Mean Corpuscular Hemoglobin 30.6 pg (28.0-34.0); Mean Corpuscular Volume 96.3 fL (80-94); Mean Platelet Volume 10.3 fL (7.4-10.4); Monocytes # 0.1 10^3/uL (0.2-0.9); Monocytes % 0.7 %; Neutrophils # 7.6 10^3/uL (1.8-7.7); Neutrophils % 88.8 %; Nucleated Red Blood Cells % 0 %; Platelet Count 153 10^3/cmm (130-400); Red Blood Count 3.53 10^6/uL (4.1-5.3); Red Cell Distribution Width 13.1 % (12.1-15.1); White Blood Count 8.5 10^3/uL (4.0-10.0)
[2019-12-15] MEDS: pantoprazole DR 40 mg Tablet PO (10:50)
[2019-12-15] MEDS: HYDROcodone-acetaminophen 5-325 mg Tablet 1 TAB PO ×2 (10:56→16:47)
[2019-12-15 11:48] LABS: Glucose Point of Care 188 mg/dL (70-110)
--- NOTE | 2019-12-15 12:55 | PC.CHAP ---
Pastoral Care Encounter/Spiritual Assessment Type of Contact [] Declined follow up clerk visit [] Patient/Family/Request visit [] Outpatient visit [] Follow-up visit [] Physician referral [] Code/Alert [] Routine visit [] Staff referral [] Actively dying [] Patient sleeping [] Family support [] [] Out of room [] Palliative care [] [] Receiving care in room [] Pre-surgical visit [] Trauma [] Long length of stay [] ICU visit [] Other: Relational/Emotional Strength [x] Patient feels connected with others/family/visitors/staff [] Distress [] Loneliness/isolation [] Abandonment Spirituality of Patient [x] Person of Mariela [] Attends Spiritism of their Mariela [x] Believes in Prayer [] Reads Bible or Denominational materials [] There are Spiritual issues to be addressed On Awake Counselor Interventions [x] Prayer [x] Active listening [x] Non-anxious presence [x] Spiritual/emotional support [] Crisis/trauma care [] Spiritual counseling [] Bereavement support [] Provided bereavement packet [] Provided Bible/devotional materials [] Provided toy/stuffed animal, coloring book to patient or family member [x] Completed spiritual assessment [] Provided Communion [] Anointing/[place] [] Salvation [] Other: Impact on Illness or Injury [] Angry [] Fearful [] Anxious [] Often cries [] Exhaustion [] Unable to work [] Unable to attend orthodoxy [] Unable to walk/stand [] Unable to read [] Unable to drive [] Unable to eat/drink [] Unable to sleep [] Unable to be with family [x] Other: 2 family members and 1 staff member present. Summary Chaplains prayed with family members and staff member. Time spent with patient 15 minutes.
[2019-12-15 16:59] LABS: Glucose Point of Care 129 mg/dL (70-110)
--- NOTE | 2019-12-15 19:00 | PC.NURSE ---
Introduction of staff and report received, aidet.
--- NOTE | 2019-12-15 20:07 | PM.PN ---
Subjective Subjective: Interval history: He reports he is feeling better. Rare intermittent cough. Vitals/I&O/Wt Last Vital Signs Temp 98.2 F 12/15/19 19:46 Pulse 72 12/15/19 19:46 Resp 17 12/15/19 19:46 BP 96/48 12/15/19 19:46 Pulse Ox 98 12/15/19 19:46 12/15/19 12/15/19 12/15/19 06:59 14:59 22:59 Intake Total 0 / 0 1240 / 1240 1000 / 2240 Output Total 500 / 500 500 / 500 400 / 900 Balance -500 / -500 740 / 740 600 / 1340 Weight last 48 hrs Weight 45.359 kg Physical Exam Const: COMMON NORMALS: no apparent distress and oriented x3 HENMT: COMMON NORMALS: oropharynx normal Neck/C-Spine: COMMON NORMALS: no JVD CERVICAL SPINE: Yes other (Postoperative scarring.) Resp: COMMON NORMALS: normal respiratory effort AUSCULTATION: diminished lung sounds bilateral in the lower lung elaine Cardio: COMMON NORMALS: no JVD, regular rhythm, S1 normal heart sound, S2 normal heart sound and no murmurs RHYTHM: regular rhythm HEART SOUNDS: S1 normal and S2 normal GI: COMMON NORMALS: normal to inspection, nondistended, normoactive bowel sounds, soft to palpation and non-tender PALPATION: Yes soft Extremity: COMMON NORMALS: no joint enlargement and no pedal edema Neuro: COMMON NORMALS: oriented x3 and moves all extremities Skin: COMMON NORMALS: no rashes or lesions noted GENERAL SKIN EXAM: no rashes or lesions noted Data : 12/15/19 07:00 12/15/19 05:34 Micro: Microbiology 12/15/19 06:20 MRSA Culture - Final Nose 12/14/19 20:05 Blood Culture - Preliminary Blood SPECIMEN COLLECTED 12/14/19 20:01 Blood Culture - Preliminary Blood SPECIMEN COLLECTED A&P Assessment and plan (1) Pneumonia: Discussed with him and family findings of the CAT scan. He reports feeling better today. Was weaned off oxygen, currently down to room air. Given it is difficult to distinguish between pneumonia or recurrence of his malignancy currently with IV antibiotics with subsequent reassessment. He is agreeable with plan. Status: Acute Qualifiers: Pneumonia type: due to unspecified organism Laterality: left Lung location: lower lobe of lung Qualified Code(s): J18.9 - Pneumonia, unspecified organism Code(s): J18.9 - Pneumonia, unspecified organism (2) Cancer: Concern for possible recurrence of cancer in left lower lung. 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 Continue tube feeds. -Chronic dysphagia, has PEG tube in place; resumed tube feeding. 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 Accuchecks, low dose ISS -Hyperlipidemia -GERD Attestations Medical Necessity Statement*: Continue admission for assessment management of pneumonia, possible recurrence of malignancy. Coding Level of Care Code Acute Facilities Engineering Manager for Chg Fwd Diagnoses Pneumonia J18.9 Pneumonia type: due to unspecified organism Laterality: left Lung location: lower lobe of lung Cancer C80.1 COPD (chronic obstructive pulmonary disease) J44.9 COPD type: unspecified COPD
[2019-12-15 20:50] LABS: Glucose Point of Care 252 mg/dL (70-110)
[2019-12-16] VITALS (9 sets, daily range): BP systolic 104–133; BP diastolic 50–65; PULSE 61–93; RESP 16–18; TEMP 36.4–37; O2SAT 93–98
[2019-12-16] MEDS: HYDROmorphone 1 mg/mL INJ 1 mL 0.4 MG IVP ×2 (02:44→23:43)
--- NOTE | 2019-12-16 02:44 | PC.NURSE ---
Attempt to give pt oral pain med, discovered housekeeping had thrown his geronimo button attachment away when they cleaned the room. call placed to supervisor melt house Melly and surgical services manager Sweta to try to find another one. Either person was able to find one. will call GI lab 1st thing this am to see if they have the piece needed.
[2019-12-16 05:12] LABS: Basophils % 0.1 %; Hematocrit 32.5 % (42.0-52.0); Hemoglobin 10.3 g/dL (11.7-16.6); Lymphocytes # 1.9 10^3/uL (0.8-4.8); Lymphocytes % 18.9 %; Mean Corpuscular HGB Conc 31.7 g/dL (30.0-36.0); Mean Corpuscular Hemoglobin 31.6 pg (28.0-34.0); Mean Corpuscular Volume 99.7 fL (80-94); Mean Platelet Volume 10.6 fL (7.4-10.4); Monocytes # 0.5 10^3/uL (0.2-0.9); Monocytes % 4.9 %; Neutrophils # 7.4 10^3/uL (1.8-7.7); Neutrophils % 75.6 %; Nucleated Red Blood Cells % 0 %; Platelet Count 156 10^3/cmm (130-400); Red Blood Count 3.26 10^6/uL (4.1-5.3); Red Cell Distribution Width 13.2 % (12.1-15.1); White Blood Count 9.8 10^3/uL (4.0-10.0)
[2019-12-16 05:39] LABS: Anion Gap 12.5 (5-19); Blood Urea Nitrogen 15 mg/dL (8-23); Calcium 9.3 mg/Dl (8.8-10.2); Carbon Dioxide 25 mmol/L (22-29); Chloride 105 mmol/L (98-107); Glomerular Filtration Rate 212.7 mL/min (90-130); Glucose 114 mg/dL (74-106); Potassium 4.5 mmol/L (3.5-5.1); Sodium 138 mmol/L (136-145)
[2019-12-16 06:31] LABS: Glucose Point of Care 117 mg/dL (70-110)
[2019-12-16] MEDS: levofloxacin-dextrose 5 % 750 MG/150 ML PREMIX 150 MG IV (07:31)
[2019-12-16] MEDS: enoxaparin 30 mg/0.3 mL Syringe SUBCUT (07:34)
[2019-12-16] MEDS: piperacillin-tazobactam 3.375 GM in sodium chloride 0.9% (plus) 50 ML IV ×3 (07:37→20:33)
[2019-12-16] MEDS: pantoprazole DR 40 mg Tablet PO (09:21)
[2019-12-16] MEDS: HYDROcodone-acetaminophen 5-325 mg Tablet 1 TAB PO ×2 (09:28→18:13)
[2019-12-16 10:54] LABS: Glucose Point of Care 204 mg/dL (70-110)
[2019-12-16 16:52] LABS: Glucose Point of Care 160 mg/dL (70-110)
--- NOTE | 2019-12-16 19:00 | PC.NURSE ---
INTRODUCTION OF STAFF AND REPORT RECEIVED, AIDET.
--- NOTE | 2019-12-16 19:05 | PC.CHAP ---
Pastoral Care Encounter/Spiritual Assessment Type of Contact [] Declined program management specialist visit [] Patient/Family/Request visit [] Outpatient visit [] Follow-up visit [] Physician referral [] Code/Alert [] Routine visit [] Staff referral [] Actively dying [] Patient sleeping [] Family support [] [] Out of room [] Palliative care [] [] Receiving care in room [] Pre-surgical visit [] Trauma [] Long length of stay [] ICU visit [x] Other:Isolation Relational/Emotional Strength [] Patient feels connected with others/family/visitors/staff [] Distress [] Loneliness/isolation [] Abandonment Spirituality of Patient [] Person of Mariela [] Attends Jainism of their Mariela [] Believes in Prayer [] Reads Bible or Mandaeism materials [] There are Spiritual issues to be addressed Cook Manager Interventions [] Prayer [] Active listening [] Non-anxious presence [] Spiritual/emotional support [] Crisis/trauma care [] Spiritual counseling [] Bereavement support [] Provided bereavement packet [] Provided Bible/devotional materials [] Provided toy/stuffed animal, coloring book to patient or family member [] Completed spiritual assessment [] Provided Communion [] Anointing/[place] [] Salvation [] Other: Impact on Illness or Injury [] Angry [] Fearful [] Anxious [] Often cries [] Exhaustion [] Unable to work [] Unable to attend sabianism [] Unable to walk/stand [] Unable to read [] Unable to drive [] Unable to eat/drink [] Unable to sleep [] Unable to be with family [] Other: Summary Patient under precautions Visit attempted by Cook Managergina Carl Time spent with patient 3 minutes
--- NOTE | 2019-12-16 20:23 | P.PN_ITS ---
Subjective Subjective: Interval history: Says he is continued to improve. Vitals/I&O/Wt Last Vital Signs Temp 97.6 F 12/16/19 19:03 Pulse 62 12/16/19 19:03 Resp 18 12/16/19 19:03 BP 104/56 12/16/19 19:03 Pulse Ox 96 12/16/19 19:03 12/16/19 12/16/19 12/16/19 06:59 14:59 22:59 Intake Total 1050 / 3340 50 / 50 1200 / 1250 Output Total 500 / 1700 1300 / 1300 1300 / 2600 Balance 550 / 1640 -1250 / -1250 -100 / -1350 Physical Exam Const: COMMON NORMALS: no apparent distress and oriented x3 HENMT: COMMON NORMALS: oropharynx normal Neck/C-Spine: COMMON NORMALS: no JVD CERVICAL SPINE: Yes other (Postoperative scarring.) Resp: COMMON NORMALS: normal respiratory effort AUSCULTATION: diminished lung sounds bilateral in the lower lung elaine Cardio: COMMON NORMALS: no JVD, regular rhythm, S1 normal heart sound, S2 normal heart sound and no murmurs RHYTHM: regular rhythm HEART SOUNDS: S1 normal and S2 normal GI: COMMON NORMALS: normal to inspection, nondistended, normoactive bowel sounds, soft to palpation and non-tender PALPATION: Yes soft Extremity: COMMON NORMALS: no joint enlargement and no pedal edema Neuro: COMMON NORMALS: oriented x3 and moves all extremities Skin: COMMON NORMALS: no rashes or lesions noted GENERAL SKIN EXAM: no rashes or lesions noted Data : 12/16/19 04:28 12/16/19 04:28 Micro: Microbiology 12/15/19 21:33 Legionella Urinary Antigen - Final Urine,Voided 12/15/19 23:33 Bacterial Antigens - Final Urine,Clean Catch 12/14/19 20:05 Blood Culture - Preliminary Blood NEGATIVE TO DATE 12/14/19 20:01 Blood Culture - Preliminary Blood NEGATIVE TO DATE A&P Assessment and plan (1) Pneumonia: Continue IV antibiotic for pneumonia with concern for possible recurrence of malignancy. Will need reassessment imaging, follow-up with oncology. Discussed with him and family findings of the CAT scan. Was weaned off oxygen, currently down to room air. Status: Acute Qualifiers: Pneumonia type: due to unspecified organism Laterality: left Lung location: lower lobe of lung Qualified Code(s): J18.9 - Pneumonia, unspecified organism Code(s): J18.9 - Pneumonia, unspecified organism (2) Cancer: Concern for possible recurrence of cancer in left lower lung. 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 Continue tube feeds. -Chronic dysphagia, has PEG tube in place; resumed tube feeding. 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 Accuchecks, low dose ISS -Hyperlipidemia -GERD Attestations Medical Necessity Statement*: At this time continue IV antibiotics for pneumonia with concern for possible recurrence of malignancy. Coding Level of Care Code Acute Museum Or Zoo Director for Chg Fwd Diagnoses Pneumonia J18.9 Pneumonia type: due to unspecified organism Laterality: left Lung location: lower lobe of lung Cancer C80.1 COPD (chronic obstructive pulmonary disease) J44.9 COPD type: unspecified COPD
[2019-12-16 21:41] LABS: Glucose Point of Care 221 mg/dL (70-110)
[2019-12-17] VITALS: BP 96/56; PULSE 53; RESP 20; TEMP 36.4; O2SAT 97
[2019-12-17 04:00] VITALS: BP 125/64; PULSE 65; RESP 18; TEMP 36.1; O2SAT 96
[2019-12-17 04:50] LABS: Basophils % 0.3 %; Eosinophils % 0.1 %; Hematocrit 35.6 % (42.0-52.0); Hemoglobin 11.4 g/dL (11.7-16.6); Lymphocytes % 12.4 %; Mean Corpuscular Hemoglobin 31.8 pg (28.0-34.0); Mean Corpuscular Volume 99.2 fL (80-94); Monocytes # 0.5 10^3/uL (0.2-0.9); Monocytes % 6.3 %; Neutrophils # 6.3 10^3/uL (1.8-7.7); Neutrophils % 80.6 %; Nucleated Red Blood Cells % 0 %; Platelet Count 193 10^3/cmm (130-400); Red Blood Count 3.59 10^6/uL (4.1-5.3); Red Cell Distribution Width 13.2 % (12.1-15.1); White Blood Count 7.8 10^3/uL (4.0-10.0)
[2019-12-17 05:14] LABS: Anion Gap 11.3 (5-19); Blood Urea Nitrogen 15 mg/dL (8-23); Calcium 9.6 mg/Dl (8.8-10.2); Carbon Dioxide 28 mmol/L (22-29); Chloride 102 mmol/L (98-107); Glomerular Filtration Rate 164.4 mL/min (90-130); Glucose 70 mg/dL (74-106); Potassium 4.3 mmol/L (3.5-5.1); Sodium 137 mmol/L (136-145)
[2019-12-17] MEDS: levofloxacin-dextrose 5 % 750 MG/150 ML PREMIX 150 MG IV (05:51)
[2019-12-17] MEDS: enoxaparin 30 mg/0.3 mL Syringe SUBCUT (05:52)
--- NOTE | 2019-12-17 06:37 | PC.NURSE ---
Pt has rested well this night. complaints of generalized body aches voiced but relieved with medication.
[2019-12-17 06:45] LABS: Glucose Point of Care 93 mg/dL (70-110)
[2019-12-17] MEDS: piperacillin-tazobactam 3.375 GM in sodium chloride 0.9% (plus) 50 ML IV ×3 (06:48→21:13)
[2019-12-17 07:14] VITALS: BP 143/72; PULSE 57; RESP 16; TEMP 36.6; O2SAT 97
[2019-12-17] MEDS: pantoprazole DR 40 mg Tablet PO (09:01)
[2019-12-17] MEDS: HYDROcodone-acetaminophen 5-325 mg Tablet 1 TAB PO ×2 (09:01→15:30)
[2019-12-17 11:06] VITALS: BP 119/65; PULSE 63; RESP 18; TEMP 36.4; O2SAT 96
[2019-12-17 11:43] LABS: Glucose Point of Care 180 mg/dL (70-110)
[2019-12-17 15:57] VITALS: BP 118/66; PULSE 85; RESP 20; TEMP 36.4; O2SAT 95
[2019-12-17 16:40] LABS: Glucose Point of Care 279 mg/dL (70-110)
[2019-12-17 19:21] VITALS: BP 124/70; PULSE 80; RESP 20; TEMP 36.7; O2SAT 98
--- NOTE | 2019-12-17 19:32 | PC.NURSE ---
Introduction of staff and report received, aidet.
[2019-12-17 21:24] LABS: Glucose Point of Care 163 mg/dL (70-110)
--- NOTE | 2019-12-17 21:29 | PM.PN ---
Subjective Subjective: Interval history: He is feeling better. Breathing easier. Is not requiring oxygen currently. Vitals/I&O/Wt Last Vital Signs Temp 98.1 F 12/17/19 19:21 Pulse 80 12/17/19 19:21 Resp 20 H 12/17/19 19:21 BP 124/70 12/17/19 19:21 Pulse Ox 98 12/17/19 19:21 12/17/19 12/17/19 12/17/19 06:59 14:59 22:59 Intake Total 260 / 1710 410 / 410 650 / 1060 Output Total 1400 / 4000 970 / 970 300 / 1270 Balance -1140 / -2290 -560 / -560 350 / -210 Physical Exam Const: COMMON NORMALS: no apparent distress and oriented x3 HENMT: COMMON NORMALS: oropharynx normal Neck/C-Spine: COMMON NORMALS: no JVD CERVICAL SPINE: Yes other (Postoperative scarring.) Resp: COMMON NORMALS: normal respiratory effort AUSCULTATION: diminished lung sounds bilateral in the lower lung elaine Cardio: COMMON NORMALS: no JVD, regular rhythm, S1 normal heart sound, S2 normal heart sound and no murmurs RHYTHM: regular rhythm HEART SOUNDS: S1 normal and S2 normal GI: COMMON NORMALS: normal to inspection, nondistended, normoactive bowel sounds, soft to palpation and non-tender PALPATION: Yes soft OTHER: PEG button in place. Extremity: COMMON NORMALS: no joint enlargement and no pedal edema Neuro: COMMON NORMALS: oriented x3 and moves all extremities Skin: COMMON NORMALS: no rashes or lesions noted GENERAL SKIN EXAM: no rashes or lesions noted Data : 12/17/19 04:42 12/17/19 04:42 A&P Assessment and plan (1) Pneumonia: Discussed CT changes with pulmonology this evening. On comparison with prior imaging appears all of the changes are most likely related to chronic aspiration. Does not appear to have recurrence of malignancy. However, with chronic aspiration despite taking nothing by mouth, recurrent pneumonias, chronic consolidations overall prognosis is not good. Perhaps hospice care could be considered. He has improved over this admission with antibiotic treatment, and given there is likely no malignancy to biopsy, may be transition to oral antibiotic in anticipation of discharge perhaps as early as tomorrow, with additional arrangement depending on goals of care discussion. Continue IV antibiotic until discharge. Consider follow-up with pulmonology. Continue follow-up with oncology. Status: Acute Qualifiers: Pneumonia type: due to unspecified organism Laterality: left Lung location: lower lobe of lung Qualified Code(s): J18.9 - Pneumonia, unspecified organism Code(s): J18.9 - Pneumonia, unspecified organism (2) Cancer: Concern for possible recurrence of cancer in left lower lung on CT, however, deemed to be low likelihood per discussion with pulmonology. 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 Continue tube feeds. -Chronic dysphagia, has PEG tube in place; resumed tube feeding. 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 Accuchecks, low dose ISS -Hyperlipidemia -GERD Attestations Medical Necessity Statement*: Continue admission for assessment management of aspiration pneumonia, discussion of goals of care, preparation for discharge. Coding Level of Care Code Acute Television News Photographer for Chg Fwd Diagnoses Pneumonia J18.9 Pneumonia type: due to unspecified organism Laterality: left Lung location: lower lobe of lung Cancer C80.1 COPD (chronic obstructive pulmonary disease) J44.9 COPD type: unspecified COPD
[2019-12-18] VITALS: BP 113/62; PULSE 63; RESP 20; TEMP 36.3; O2SAT 96
[2019-12-18] MEDS: HYDROcodone-acetaminophen 5-325 mg Tablet 1 TAB PO ×3 (02:43→22:31)
[2019-12-18 04:00] VITALS: BP 125/70; PULSE 68; RESP 18; TEMP 36.4; O2SAT 97
[2019-12-18 04:24] LABS: Basophils % 0.5 %; Eosinophils # 0.1 10^3/uL (0.0-0.8); Hematocrit 32.8 % (42.0-52.0); Hemoglobin 10.7 g/dL (11.7-16.6); Lymphocytes # 1.6 10^3/uL (0.8-4.8); Mean Corpuscular HGB Conc 32.6 g/dL (30.0-36.0); Mean Corpuscular Hemoglobin 30.7 pg (28.0-34.0); Mean Corpuscular Volume 94.3 fL (80-94); Mean Platelet Volume 10.1 fL (7.4-10.4); Monocytes # 0.4 10^3/uL (0.2-0.9); Monocytes % 6.9 %; Neutrophils # 4.1 10^3/uL (1.8-7.7); Neutrophils % 65.4 %; Nucleated Red Blood Cells % 0 %; Platelet Count 215 10^3/cmm (130-400); Red Blood Count 3.48 10^6/uL (4.1-5.3); Red Cell Distribution Width 12.9 % (12.1-15.1); White Blood Count 6.2 10^3/uL (4.0-10.0)
[2019-12-18 04:41] LABS: Anion Gap 13.2 (5-19); Blood Urea Nitrogen 16 mg/dL (8-23); Calcium 9.4 mg/Dl (8.8-10.2); Carbon Dioxide 27 mmol/L (22-29); Chloride 99 mmol/L (98-107); Glomerular Filtration Rate 133.2 mL/min (90-130); Glucose 97 mg/dL (74-106); Potassium 4.2 mmol/L (3.5-5.1); Sodium 135 mmol/L (136-145)
[2019-12-18] MEDS: enoxaparin 30 mg/0.3 mL Syringe SUBCUT (05:43)
[2019-12-18] MEDS: piperacillin-tazobactam 3.375 GM in sodium chloride 0.9% (plus) 50 ML IV ×3 (05:43→23:26)
[2019-12-18 06:59] LABS: Glucose Point of Care 101 mg/dL (70-110)
[2019-12-18 07:31] VITALS: BP 117/62; PULSE 52; RESP 16; TEMP 36.4; O2SAT 95
[2019-12-18 09:34] VITALS: BMI 17.2
[2019-12-18 11:05] VITALS: BP 106/65; PULSE 74; RESP 18; TEMP 36.4; O2SAT 95
[2019-12-18] MEDS: pantoprazole DR 40 mg Tablet PO (11:38)
[2019-12-18 11:40] LABS: Glucose Point of Care 188 mg/dL (70-110)
--- NOTE | 2019-12-18 11:56 | PC.SOCIAL ---
IMM Update Pg 2 of IMM given and explained to patient who voiced understanding. Signed, dated, and timed, and placed in chart. Copy provided to patient.
[2019-12-18 15:32] VITALS: BP 118/63; PULSE 76; RESP 18; TEMP 36.5; O2SAT 95
--- NOTE | 2019-12-18 15:39 | PC.RESP ---
Patient given Pulmonary Rehab information.
[2019-12-18 16:55] LABS: Glucose Point of Care 140 mg/dL (70-110)
--- NOTE | 2019-12-18 18:49 | PC.NURSE ---
pt had two nina cans for feedings and stated he only wanted one can per feeding and this nurse gave 300ml water for breakfast with one can of two nina, 150 ml of water with one can of two nina for lunch, 300ml of water with one can of two nina for dinner. pt tolerated well. pt stated he only wanted his cans for his feedings and this is how he does it at home.
--- NOTE | 2019-12-18 19:00 | PC.NURSE ---
INTRODUCTION OF STAFF AND REPORT RECEIVED, AIDET.
[2019-12-18 19:31] VITALS: BP 108/68; PULSE 65; TEMP 36; O2SAT 97
--- NOTE | 2019-12-18 21:32 | PM.PN ---
Subjective Subjective: Interval history: hemodynamically stable, afebrile, feels improved Medications: Reviewed: Yes Vitals/I&O/Wt Last Vital Signs Temp 96.8 F L 12/18/19 19:31 Pulse 65 12/18/19 19:31 Resp 18 12/18/19 15:32 BP 108/68 12/18/19 19:31 Pulse Ox 97 12/18/19 19:31 12/18/19 12/18/19 12/18/19 06:59 14:59 22:59 Intake Total 290 / 1350 980 / 980 Output Total 1000 / 2520 275 / 275 950 / 1225 Balance -710 / -1170 705 / 705 -950 / -245 Weight last 48 hrs Weight 49.952 kg Weight 49.895 kg Physical Exam Narrative: EXAM NARRATIVE: GEN: Awake, alert and oriented, no acute distress CVS: S1S@ N RS: CTA B/L Abd: Soft, nt/nd , bs+ SUPERVISOR VENDOR QUALITY: no focal neuro deficits Data : 12/18/19 04:03 12/18/19 04:03 A&P Assessment and plan (1) Pneumonia: Overall impression is that of recurrent aspiration pneumonia Unfortunately, this appears to be an unavoidable course of events for Mr. Weeks. past h/o radiation of the head and neck area make him extremely high risk of recurrent aspiration. This is not only limited to GI contents, but mostly tends to be upper airway aspiration from nasopharyngeal secretions. Will continue Zosyn for now. Upon discharge, we will transition to Augmentin 875 po BID to complete a course of 5 days. Given that this is likely to be recurrent process, I have discussed a pill in pocket approach with him regarding starting empiric antibiotic treatment at the first sign of him feeling symptomatic (fever, worsening cough, shortness of breath). He is usually able to tell when he may have aspirated. This will hopefully prevent recurrent inpatient admissions for him. If symptoms fail to improve within 48 hrs, he is instructed to report to PMD or urgent care/ED for radiological studies and to assess appropriateness of Abx. He has declined palliative care/hospice at this time. Continue follow-up with oncology as an outpatient. Status: Acute Qualifiers: Pneumonia type: due to unspecified organism Laterality: left Lung location: lower lobe of lung Qualified Code(s): J18.9 - Pneumonia, unspecified organism Code(s): J18.9 - Pneumonia, unspecified organism (2) Cancer: Status: Acute Code(s): C80.1 - Malignant (primary) neoplasm, unspecified (3) COPD (chronic obstructive pulmonary disease): Hx of COPD 2 L NC at home PRN Status: Acute Qualifiers: COPD type: unspecified COPD Qualified Code(s): J44.9 - Chronic obstructive pulmonary disease, unspecified Code(s): J44.9 - Chronic obstructive pulmonary disease, unspecified Additional A&P Information -Cachexia, at least moderate protein calorie malnutrition: BMI-15 kg/m2. Continue tube feeds. -Chronic dysphagia, has PEG tube in place; resumed tube feeding. 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 Accuchecks, low dose ISS -Hyperlipidemia -GERD Attestations Medical Necessity Statement*: ongoing management of aspiration pneumonia, GOC discussion, likely discharge tomorrow Coding Level of Care Code Acute Administration Physician for Chg Fwd Diagnoses Pneumonia J18.9 Pneumonia type: due to unspecified organism Laterality: left Lung location: lower lobe of lung Cancer C80.1 COPD (chronic obstructive pulmonary disease) J44.9 COPD type: unspecified COPD
[2019-12-18 21:43] LABS: Glucose Point of Care 204 mg/dL (70-110)
[2019-12-19] VITALS: BP 94/55; PULSE 65; RESP 20; TEMP 36.3; O2SAT 93
[2019-12-19 04:00] VITALS: BP 90/51; PULSE 54; RESP 18; TEMP 35.9; O2SAT 96
[2019-12-19] MEDS: piperacillin-tazobactam 3.375 GM in sodium chloride 0.9% (plus) 50 ML IV (06:04)
[2019-12-19] MEDS: enoxaparin 40 mg/0.4 mL Syringe SUBCUT (06:05)
[2019-12-19 06:58] LABS: Glucose Point of Care 100 mg/dL (70-110)
[2019-12-19 07:25] VITALS: BP 122/67; PULSE 56; RESP 18; TEMP 36.7; O2SAT 95
[2019-12-19 11:03] VITALS: BP 91/60; PULSE 103; RESP 18; TEMP 36.6; O2SAT 94
[2019-12-19 11:48] LABS: Glucose Point of Care 291 mg/dL (70-110)
[2019-12-19 13:36] VITALS: BP 91/60; PULSE 103; RESP 18; TEMP 36.6; O2SAT 94
[2019-12-19 14:52] VITALS: BP 91/60; PULSE 103; RESP 18; TEMP 36.6; O2SAT 94
--- NOTE | 2019-12-27 23:48 | P.DS_ITS ---
Discharge Providers Date of Admission: 12/15/19 00:04 Date of Discharge: Date of Discharge: December 19, 2019 Attending Provider at Admission: Alejandra Rosa MD Attending Provider at Discharge: Liyah Herrera MD Diagnoses at Discharge Discharge Diagnosis (1) Pneumonia: Status: Acute Qualifiers: Pneumonia type: due to unspecified organism Laterality: left Lung location: lower lobe of lung Qualified Code(s): J18.9 - Pneumonia, unspecified organism (2) Cancer: Status: Acute Problem details: R tonsillar squamous cell carcinoma (3) COPD (chronic obstructive pulmonary disease): Status: Acute Qualifiers: COPD type: unspecified COPD Qualified Code(s): J44.9 - Chronic obstructive pulmonary disease, unspecified Reason for Visit Reason for Visit: Reason For Visit: SOB/COUGH Hospital Course Discharge Summary: Shawanda Weeks JR is a 69 year old male with PMHx of right tonsillar squamous cell carcinoma s/p chemo, NSCLC (RUL) s/p radiation + chemo, Chronic dysphagia s/p PEG tube placement, NIDDM type II, R jaw osteonecrosis, Hyperlipidemia, GERD; presented from home for evaluation of increased shortness of breath and concerned that he may have developed pneumonia again. Patient was admitted to our facility in October for similar symptoms during which time he was treated for pneumonia with ceftriaxone and azithromycin and was discharged on a course of doxycycline. Patient has noted increased secretions but denies any fever/chills. Work-up in the ER indicated leukocytosis with a white count of 14.3, mild anemia with a hemoglobin of 11.6, sodium of 128, normal renal function, blood sugar of 166, lactic acid of 1.1. Chest x-ray and CT scan are concerning for left lower lobe consolidation as well as possible recurrence of lung cancer as evidenced by enlarging pleural based mass in the left lower lobe as well as a noted consolidation in the left lower lobe. These findings were discussed by Dr. Renner with communication manager Dr. Menjivar and were overall more likely to represent recurrent episodes of aspiration. Unfortunately, this appears to be an unavoidable course of events for Mr. Weeks. past h/o radiation of the head and neck area make him extremely high risk of recurrent aspiration. This is not only limited to GI contents, but mostly tends to be upper airway aspiration from nasopharyngeal secretions. He was treated with iv Zosyn x 5 days. Given that this is likely to be recurrent process, I have discussed a pill in pocket approach with him regarding starting empiric antibiotic treatment at the first sign of him feeling symptomatic (fever, worsening cough, shortness of breath). He is usually able to tell when he may have aspirated. This will hopefully prevent recurrent inpatient admissions for him. If symptoms fail to improve within 48 hrs, he is instructed to report to PMD or urgent care/ED for radiological studies and to assess appropriateness of Abx. Of note, he is colonized with MRSA, but in the absence of systemic illness would not necessarily target this with every aspiration episode. He has been provided a prescription of 5 days of abx for now for the next episode. If suppressive pill in pocket approach works for him next time, he is recommended to follow with PCP or his oncologist to keep following this routine. He has declined palliative care/hospice at this time as he beleives he has been doing well recently and has gained some weight. Physical Exam Narrative: EXAM NARRATIVE: GEN: Awake, alert and oriented, no acute distress CVS: S1S2 N RS: CTA B/L Abd: Soft, nt/nd , bs+ ROUNDER AND BACKER: no focal neuro deficits Discharge Data Data Completed and Pending: Completed Studies During Hospitalization Category Date Time Status CT chest abd pel w con* Urgent Cat Scan 12/14/19 20:56 Completed XR chest 1V moises ble [id number] Stat Exams 12/14/19 19:45 Completed Vitals: Last Vital Signs Temp 97.9 F 12/19/19 14:52 Pulse 103 H 12/19/19 14:52 Resp 18 12/19/19 14:52 BP 91/60 12/19/19 14:52 Pulse Ox 94 12/19/19 14:52 Discharge Plan Discharge Patient Disposition: Home, Self-Care Condition: Stable Prescriptions: New acetaminophen 325 mg Tablet 650 mg PO Q6H PRN (Reason: Mild/Mod Pain Or Temp >/= 101) Qty: 0 RF: 0 Augmentin 875-125 mg tablet 1 tab PO BID Qty: 10 RF: 0 Discharge Orders: Discharge Order (Routine); Ordered 12/19/19 Ordered By: Liyah Herrera Referrals: Leonel Abbasi [Family Provider] - 12/27/19 9:00 am Discharge Diet: Resume prior tube feeds Discharge Activity: Resume usual activity Patient Instructions: Acetaminophen (By mouth), Amoxicillin/Clavulanate Potassium (By mouth) Discharge Date/Time: 12/19/19 14:54 Discharge Attestations Time Spent in Discharge Care*: greater than 30 min Specific Discharge Activities: Specific discharge activities: educating patient Quality Metrics Clinical Quality Measures During this hospital stay, did patient experience: None Coding Level of Care Code Acute Obiee Lead Developer for Chg Fwd Diagnoses Pneumonia J18.9 Pneumonia type: due to unspecified organism Laterality: left Lung location: lower lobe of lung Cancer C80.1 COPD (chronic obstructive pulmonary disease) J44.9 COPD type: unspecified COPD
== END 2019-12-19 14:54 | disposition home or self-care (01) | DRG 178 ==
LOC: ER 12-15 00:01 → MEDSURG 12-15 00:12
PROVIDERS: Internal Medicine; Admitting Provider Family Medicine; Emergency Provider Emergency Medicine; Family Provider Internal Medicine; Visit Provider Student in an Organized Health Care Education/Training Program
DX: J69.0 Pneumonitis due to inhalation of food and vomit (principal); R64 Cachexia; Z68.1 Body mass index [BMI] 19.9 or less, adult; E44.0 Moderate protein-calorie malnutrition; E78.5 Hyperlipidemia, unspecified; K21.9 Gastro-esophageal reflux disease without esophagitis; Z85.89 Personal history of malignant neoplasm of other organs and systems; J43.9 Emphysema, unspecified; E03.9 Hypothyroidism, unspecified; R13.10 Dysphagia, unspecified; Z93.1 Gastrostomy status; D64.9 Anemia, unspecified; E11.22 Type 2 diabetes mellitus with diabetic chronic kidney disease; Z87.01 Personal history of pneumonia (recurrent); N18.3 Chronic kidney disease, stage 3 (moderate)
CPT/HCPCS: 12345; 36415; 36416; 71045; 71260; 74177; 80048; 80053; 81001; 82962; 83605; 84484; 85025; 86403; 87040; 87449; 87641; 87804; 93005; 94640; 96372; 96374; 96375; 99283; A9270; J1170; J1650; J1815; J1956; J2405; J2543; J2930; J7030

== ENCOUNTER 2019-12-25 10:31 | Outpatient (CLI) | payer OTHER, SELFPAY ==
--- NOTE | 2019-12-25 10:37 | XRR_ITS ---
PROCEDURE INFORMATION: Exam: XR Chest, 2 Views Exam date and time: 12/25/2019 10:49 AM Age: 69 years old Clinical indication: Condition or disease; Lung condition and disease; Pneumonia; Other: Not specified; Additional info: Pneumonia follow up TECHNIQUE: Imaging protocol: XR of the chest Views: 2 views. COMPARISON: XR CHEST 12/14/2019 8:[address] CHEST 12/14/2019 9:51 PM FINDINGS: Lungs: There is diffuse bibasilar airspace disease. The more focal pulmonary opacities on the prior comparison CT CHEST would be better evaluated with follow-up CT. Pleural space: No pleural effusion. No pneumothorax. Heart/Mediastinum: The cardiac silhouette is not enlarged. The mediastinal contours are normal. Bones/joints: Prior cervical spine surgery. Possible prior mandibular surgery. Prior right rotator cuff surgery. XR/XR chest 2V* 33200 IMPRESSION: Bibasilar airspace disease. No significant change since the prior chest radiograph.
== END 2019-12-25 10:32 | disposition home or self-care (01) ==
LOC: RAD 10:35
PROVIDERS: Family Provider Internal Medicine; Visit Provider Internal Medicine
DX: J18.9 Pneumonia, unspecified organism (principal)
CPT/HCPCS: 71046

== ENCOUNTER 2020-01-10 12:32 | Inpatient (IN) | payer OTHER, SELFPAY ==
[2020-01-10] VITALS (44 sets, daily range): BP systolic 73–118; BP diastolic 37–70; PULSE 84–132; RESP 14–36; TEMP 36.6–39.8; O2SAT 89–99; BMI 16.1
--- NOTE | 2020-01-10 12:34 | ED_ITS ---
Entered by Mayela Harris, acting as scribe for Tonya Thompson MD HPI - Weakness General: Chief complaint: General Medical Stated complaint: Lethargy/AMS Time Seen by Provider: 01/10/20 12:34 Source: EMS and RN notes reviewed Mode of arrival: EMS Limitations: physical limitation History of Present Illness: HPI Narrative: Per EMS report, 69 yo male was fou nd by his family this morning very weak and tired. The patient is usually ambulatory but he is unable to get up and walk around this morning. The patient has a high fever (103.6 axillary). He said he has been sick. The patient has a history of cancer and has a peg tube in place. Complaint: generalized weakness and lack of energy Onset (ago): hour(s) Duration: constant Location: generalized Migration: none Severity: severe Relieving factors: none Exacerbating factors: none Context: recent illness Associated symptoms: Reports fever(s) (103.6 axillary) and other (difficulty breathing) Review of Systems Const: Reports: fever (103.6 axillary); Denies: change in appetite or night sweats Eyes: Denies: change in vision ENMT: Denies: throat pain or ear pain Card: Denies: swelling of feet/ankles, shortness of breath on exertion or shortness of breath when lying down Resp: Denies: shortness of breath or productive cough GI: Denies: abdominal pain, diarrhea or constipation : Denies: flank pain Musc: Denies: back pain Skin/Breast: Denies: rash Neuro: Denies: numbness in extremities or weakness in extremities Psych: Denies: depression Endo: Denies: excessive thirst PFSH ED PFSH: Medical History (Updated 01/10/20 @ 16:00 by Mario López MD) Cancer R tonsillar squamous cell carcinoma Cellulitis COPD (chronic obstructive pulmonary disease) Diabetes mellitus Dysphagia Emphysema of lung Gastritis Gastroesophageal reflux Hypothyroidism Lung disease MRSA (methicillin resistant Staphylococcus aureus) Neuropathy 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 Thyroid disease Surgical History (Updated 01/10/20 @ 15:57 by Mario López MD) History of gastrostomy tube placement History of neck surgery History of shoulder surgery History of tonsillectomy Family History Mother Cancer Lung cancer Other CAD (coronary artery disease) Diabetes Social History Smoking and tobacco status: never smoked Alcohol intake: never Lives independently: Yes Physical Exam Const: COMMON NORMALS: alert GENERAL APPEARANCE: cooperative and well developed; not in distress and not diaphoretic ORIENTATION/CONSCIOUSNESS: Yes awake, Yes oriented to person, Yes oriented to place and Yes oriented to time HENMT: COMMON NORMALS: normocephalic, head/scalp atraumatic, external ears normal, external nose normal and moist oral mucous membranes HEAD & SCALP: normocephalic and atraumatic FACE & SINUS: normal facial exam; no facial tenderness NOSE: external nose normal EXTERNAL EAR: Yes external ears normal MOUTH: oral and palatal mucosa normal, lip normal and tongue normal TEETH & GINGIVA: no abnormal tooth and associated gingiva THROAT: posterior oropharynx normal and uvula midline Eye: COMMON NORMALS: PERRL and EOMs intact bilaterally PUPIL: Yes PERRL Neck/C-Spine: COMMON NORMALS: full ROM, supple and no JVD GENERAL: Yes normal visual inspection and Yes trachea midline CERVICAL SPINE: No cervical spine tenderness Lymph: LYMPHATIC: no lymphadenopathy noted Chest: COMMONS NORMALS: inspection of chest normal Resp: COMMON NORMALS: normal respiratory effort and clear to auscultation bilaterally EFFORT & INSPECTION: Yes retractions and Yes other (tachypnea) AUSCULTATION: clear to auscultation bilaterally and diminished lung sounds Cardio: COMMON NORMALS: no JVD, regular rhythm, no gallops, no murmurs and peripheral pulses 2+ throughout RATE: tachycardic RHYTHM: regular rhythm PERIPHERAL PULSES: pulses 2+ throughout GI: COMMON NORMALS: normal to inspection, nondistended, normoactive bowel sounds, soft to palpation and non-tender PALPATION: Yes soft Back/Pelvis: COMMON NORMALS: thoracic and lumbar spine normal to inspection and thoraco-lumbar ROM normal Extremity: COMMON NORMALS: normal to inspection, full ROM and normal capillary refill Neuro: COMMON NORMALS: CN's II-XII intact bilaterally, moves all extremities, no focal motor deficits and no sensory deficits noted SENSORIUM/ORIENTATION: Yes alert, Yes oriented to person, Yes oriented to place and Yes oriented to time Psych: COMMON NORMALS: mental status grossly normal, thought process normal, cooperative, affect normal, speech normal and activity/motor behavior normal SPEECH: Yes normal speech THOUGHT PROCESS: normal thought process Skin: COMMON NORMALS: no rashes or lesions noted and skin turgor normal GENERAL SKIN EXAM: no rashes or lesions noted and turgor normal Course Vital Signs: Vital signs: Vital Signs Temperature 101.9 F H 01/10/20 16:45 Pulse Rate 102 H 01/10/20 18:15 Respiratory Rate 30 H 01/10/20 18:15 Blood Pressure 92/52 01/10/20 18:15 Pulse Oximetry 95 01/10/20 18:15 MDM - Weakness Lab Data: Labs: Lab Results 01/10/20 01/10/20 01/10/20 Range/Units 12:59 13:00 13:43 WBC (4.0-10.0) 10^3/ uL RBC (4.1-5.3) 10^6/u L Hgb (11.7-16.6) g/dL Hct (42.0-52.0) % MCV (80-94) fL MCH (28.0-34.0) pg MCHC (30.0-36.0) g/dL RDW (12.1-15.1) % Plt Count (130-400) 10^3/c mm MPV (7.4-10.4) fL Neut % (Auto) % Lymph % (Auto) % [place] % (Auto) % Eos % (Auto) % Baso % (Auto) % Neut # (Auto) (1.8-7.7) 10^3/u L Lymph # (Auto) (0.8-4.8) 10^3/u L [place] # (Auto) (0.2-0.9) 10^3/u L Eos # (Auto) (0.0-0.8) 10^3/u L Baso # (Auto) (0.0-0.1) 10^3/u L Nucleated RBC % (a uto) % Nucleated RBCs # /100WBC PT 15.10 H (10.5-13.3) SECO NDS INR 1.15 (0.8-1.2) Specimen Type Arterial Sample Site Brachial, right ABG pH 7.45 (7.35-7.45) ABG pCO2 46.6 H (35-45) mmHg ABG pO2 57.7 L (80.0-100.0) mmH g ABG HCO3 32.2 H (22-26) mmol/L ABG Base Excess 7.2 H (-2.0-2.0) mmol/ L Angelo Test N/a Hematocrit 35.0 L (42-52) % Hgb O2 Saturation 89.5 L (95-100) % Carboxyhemoglobin 1.8 (0.4-20.1) %THgb Methemoglobin 1.1 (0.4-1.5) % Total Hemoglobin 11.4 L (14-18) g/dL O2 Delivery Device Nrb O2 Liters/Min 12.0 % Value Analysis Coordinator ID amh Sodium (136-145) mmol/L Potassium (3.5-5.1) mmol/L Chloride (98-107) mmol/L Carbon Dioxide (22-29) mmol/L Anion Gap (5-19) BUN (8-23) mg/dL Creatinine (0.7-1.2) mg/dL GFR Calculation (90-130) mL/min Glucose (65-115) mg/dL Lactic Acid (0.5-2.2) mmol/L Calcium (8.5-10.5) mg/dL Total Bilirubin (0.15-1.2) mg/dL AST (0-40) U/L ALT (0-41) U/L Alkaline Phosphata se (40-130) IU/L Troponin T Baselin e (0-15) ng/mL Total Protein (6.6-8.7) g/dL Albumin (3.5-5.2) g/dL Globulin (1.3-4.6) g/dL Urine Color Yellow (Yellow) Urine Appearance Clear (CLEAR) Urine pH 8.0 H (5-7) Ur Specific Gravit y 1.010 (1.005-1.030) Urine Protein 1+ H (Negative) Urine Glucose (UA) Norm (Normal) Urine Ketones Negative (Negative) Urine Occult Blood Neg (Negative) Urine Nitrate Negative (Negative) Urine Bilirubin Neg (NEGATIVE) Prot Sulfosalicyli c Acd Positive Urine Urobilinogen 4 H (Negative) mg/dL Ur Leukocyte Suly ase Negative (Negative) Urine RBC Rare (0-2) /hpf Urine WBC None (0-5) /hpf Ur Squamous Epith Cells 0-4 H (0-5) Urine Bacteria Trace (NONE) Urine Mucus Trace Influenza Type A A g (Negative) POC Influenza B Ag (Negative) 01/10/20 01/10/20 01/10/20 Range/Units 13:43 13:43 13:43 WBC 14.7 H (4.0-10.0) 10^3/ uL RBC 3.49 L (4.1-5.3) 10^6/u L Hgb 10.5 L (11.7-16.6) g/dL Hct 33.6 L (42.0-52.0) % MCV 96.3 H (80-94) fL MCH 30.1 (28.0-34.0) pg MCHC 31.3 (30.0-36.0) g/dL RDW 13.5 (12.1-15.1) % Plt Count 220 (130-400) 10^3/c mm MPV 10.1 (7.4-10.4) fL Neut % (Auto) 91.4 % Lymph % (Auto) 4.0 % [place] % (Auto) 3.4 % Eos % (Auto) 0.6 % Baso % (Auto) 0.3 % Neut # (Auto) 13.4 H (1.8-7.7) 10^3/u L Lymph # (Auto) 0.6 L (0.8-4.8) 10^3/u L [place] # (Auto) 0.5 (0.2-0.9) 10^3/u L Eos # (Auto) 0.1 (0.0-0.8) 10^3/u L Baso # (Auto) 0.0 (0.0-0.1) 10^3/u L Nucleated RBC % (a uto) 0 % Nucleated RBCs # 0.0 /100WBC PT (10.5-13.3) SECO NDS INR (0.8-1.2) Specimen Type Sample Site ABG pH (7.35-7.45) ABG pCO2 (35-45) mmHg ABG pO2 (80.0-100.0) mmH g ABG HCO3 (22-26) mmol/L ABG Base Excess (-2.0-2.0) mmol/ L Angelo Test Hematocrit (42-52) % Hgb O2 Saturation (95-100) % Carboxyhemoglobin (0.4-20.1) %THgb Methemoglobin (0.4-1.5) % Total Hemoglobin (14-18) g/dL O2 Delivery Device O2 Liters/Min % Value Analysis Coordinator ID Sodium 134 L (136-145) mmol/L Potassium 4.4 (3.5-5.1) mmol/L Chloride 93 L (98-107) mmol/L Carbon Dioxide 30 H (22-29) mmol/L Anion Gap 15.4 (5-19) BUN 24 H (8-23) mg/dL Creatinine 0.7 (0.7-1.2) mg/dL GFR Calculation 111.5 (90-130) mL/min Glucose 176 H (65-115) mg/dL Lactic Acid (0.5-2.2) mmol/L Calcium 9.3 (8.5-10.5) mg/dL Total Bilirubin 0.6 (0.15-1.2) mg/dL AST 16 (0-40) U/L ALT 6 (0-41) U/L Alkaline Phosphata se 98 (40-130) IU/L Troponin T Baselin e 19 H (0-15) ng/mL Total Protein 7.4 (6.6-8.7) g/dL Albumin 3.3 L (3.5-5.2) g/dL Globulin 4.1 (1.3-4.6) g/dL Urine Color (Yellow) Urine Appearance (CLEAR) Urine pH (5-7) Ur Specific Gravit y (1.005-1.030) Urine Protein (Negative) Urine Glucose (UA) (Normal) Urine Ketones (Negative) Urine Occult Blood (Negative) Urine Nitrate (Negative) Urine Bilirubin (NEGATIVE) Prot Sulfosalicyli c Acd Urine Urobilinogen (Negative) mg/dL Ur Leukocyte Suly ase (Negative) Urine RBC (0-2) /hpf Urine WBC (0-5) /hpf Ur Squamous Epith Cells (0-5) Urine Bacteria (NONE) Urine Mucus Influenza Type A A g (Negative) POC Influenza B Ag (Negative) 01/10/20 01/10/20 Range/Units 14:03 15:00 WBC (4.0-10.0) 10^3/ uL RBC (4.1-5.3) 10^6/u L Hgb (11.7-16.6) g/dL Hct (42.0-52.0) % MCV (80-94) fL MCH (28.0-34.0) pg MCHC (30.0-36.0) g/dL RDW (12.1-15.1) % Plt Count (130-400) 10^3/c mm MPV (7.4-10.4) fL Neut % (Auto) % Lymph % (Auto) % [place] % (Auto) % Eos % (Auto) % Baso % (Auto) % Neut # (Auto) (1.8-7.7) 10^3/u L Lymph # (Auto) (0.8-4.8) 10^3/u L [place] # (Auto) (0.2-0.9) 10^3/u L Eos # (Auto) (0.0-0.8) 10^3/u L Baso # (Auto) (0.0-0.1) 10^3/u L Nucleated RBC % (a uto) % Nucleated RBCs # /100WBC PT (10.5-13.3) SECO NDS INR (0.8-1.2) Specimen Type Sample Site ABG pH (7.35-7.45) ABG pCO2 (35-45) mmHg ABG pO2 (80.0-100.0) mmH g ABG HCO3 (22-26) mmol/L ABG Base Excess (-2.0-2.0) mmol/ L Angelo Test Hematocrit (42-52) % Hgb O2 Saturation (95-100) % Carboxyhemoglobin (0.4-20.1) %THgb Methemoglobin (0.4-1.5) % Total Hemoglobin (14-18) g/dL O2 Delivery Device O2 Liters/Min % Value Analysis Coordinator ID Sodium (136-145) mmol/L Potassium (3.5-5.1) mmol/L Chloride (98-107) mmol/L Carbon Dioxide (22-29) mmol/L Anion Gap (5-19) BUN (8-23) mg/dL Creatinine (0.7-1.2) mg/dL GFR Calculation (90-130) mL/min Glucose (65-115) mg/dL Lactic Acid 1.4 (0.5-2.2) mmol/L Calcium (8.5-10.5) mg/dL Total Bilirubin (0.15-1.2) mg/dL AST (0-40) U/L ALT (0-41) U/L Alkaline Phosphata se (40-130) IU/L Troponin T Baselin e (0-15) ng/mL Total Protein (6.6-8.7) g/dL Albumin (3.5-5.2) g/dL Globulin (1.3-4.6) g/dL Urine Color (Yellow) Urine Appearance (CLEAR) Urine pH (5-7) Ur Specific Gravit y (1.005-1.030) Urine Protein (Negative) Urine Glucose (UA) (Normal) Urine Ketones (Negative) Urine Occult Blood (Negative) Urine Nitrate (Negative) Urine Bilirubin (NEGATIVE) Prot Sulfosalicyli c Acd Urine Urobilinogen (Negative) mg/dL Ur Leukocyte Suly ase (Negative) Urine RBC (0-2) /hpf Urine WBC (0-5) /hpf Ur Squamous Epith Cells (0-5) Urine Bacteria (NONE) Urine Mucus Influenza Type A A g Negative (Negative) POC Influenza B Ag Negative (Negative) Imaging Data^: CXR: Radiologist's impression: [place] [address] XRay Report Signed Patient: Shawanda Weeks #: [id number] : 9Acct#:[id number] Age/Sex: 69 / MADM Date: 01/10/20 Loc: [facility]/Bed: Attending Dr: Ordering Provider/Ordering MD: Tonya Thompson MD Date of Service: 01/10/20 Procedure(s): XR chest 1V portable [id number] Accession Number(s): [id number] Report Number: [id number] WS: [id number] PORTABLE CHEST HISTORY: sepsis, hypoxia COMPARISON: 12/25/2019 Significant change in appearance of the lungs since 12/25/2019. Dense area of consolidation in the RIGHT upper lobe. There are additional areas of parenchymal thickening and opacifications in the RIGHT lung. Additional scattered coarse opacifications throughout the LEFT lung. No pleural effusion or pneumothorax. Cardiac size: Normal. Mediastinum/Aorta: Mild atherosclerosis aorta. Osteopenia. Prior anterior cervical fusion. XR/XR chest 1V portable [id number] IMPRESSION: 1. Significant change in appearance of the lungs since 12/25/2019. 2. Multifocal, multilobar pneumonia. Most consolidated area in the RIGHT upper lobe. Dictated By:Ann Metz DO Signed By:Ann Metz DOSigned Date/Time:01/10/20 1445 DD/ EKG Data^: EKG 1: EKG interpretation date: 01/10/20 EKG interpretation time: 13:45 Interpretation: HR 133, sinus tachycardia, no ST changes, normal axis ABG Data^: ABG Interpretation 1: ABG results: pH 7.448, pCO2 46.6, pO2 57.7, HCO3 32 Critical Care Time Critical Care Time: Critical Care Time: Yes Total Critical Care Time: 45 Attestation: This case had a high probability of a clinically significant, sudden, or life threatening deterioration of this patient's condition which required my full and direct attention, intervention and personal management. Patient markedly hypoxic on arrival - gradually improved with NRBM and repositioning. His mental status was good throughout - he was able to participate in decision making and wants to be a full code. His family was helpful in providing history. Prior records were reviewed - history of recent pneumonia. Multiple re-evaluations, consultation with hospitalist. Discharge Plan Discharge Admit Provider: Mario López Condition: Stable Discharge Date/Time: 01/10/20 16:32 Coding Level of Care Code ED Drycleaner for Chg Fwd Exam Problem Focused The documentation recorded by the Kimberly torres Valerie R, accurately reflects the service I personally performed and the decisions made by , Tonya Thompson MD Jan 10, 2020 12:32
--- NOTE | 2020-01-10 12:36 | XR_ITS ---
WS: [id number] PORTABLE CHEST HISTORY: sepsis, hypoxia COMPARISON: 12/25/2019 Significant change in appearance of the lungs since 12/25/2019. Dense area of consolidation in the RIGHT upper lobe. There are additional areas of parenchymal thicke kali and opacifications in the RIGHT lung. Additional scattered coarse opacifications throughout the LEFT lung. No pleural effusion or pneumothorax. Cardiac size: Normal. Mediastinum/Aorta: Mild atherosclerosis aorta. Osteopenia. Prior anterior cervical fusion. XR/XR chest 1V portable [id number] IMPRESSION: 1. Significant change in appearance of the lungs since 12/25/2019. 2. Multifocal, multilobar pneumonia. Most consolidated area in the RIGHT upper lobe.
--- NOTE | 2020-01-10 12:38 | ECG_ITS ---
Measurements Intervals [place] Rate: 98 P: 56 CO: 155 QRS: 28 QRSD: 59 T: 40 QT: 314 QTc: 401 SINUS RHYTHM LOW QRS VOLTAGE IN EXTREMITY LEADS [QRS DEFLECTION < 0.5 mV IN LIMB LEADS] Compared to ECG 12/15/2019 02:30:46 No significant changes Electronically Signed On 01-10-2020 20:48:52 CARPET JOURNEYMAN by Lynne Goldberg M.D. [id number]
[2020-01-10] MEDS: ipratropium-albuterol 3 mL Neb INHALATION ×4 (12:58→23:10)
[2020-01-10 13:10] LABS: ABG PCO2 46.6 mmHg (35-45); ABG PH Result 7.45 (7.35-7.45); Base Excess ABG 7.2 mmol/L (-2.0-2.0); Blood Gas Operator Identificat amh; Blood Gas Sample Site Brachial, right; Blood Gas Sample Type Arterial; Carboxyhemoglobin 1.8 %THgb (0.4-20.1); HCO3 ABG 32.2 mmol/L (22-26); HGB O2 Sat 89.5 % (95-100); Methemoglobin 1.1 % (0.4-1.5); Oxygen Device NRB; PO2 ABG 57.7 mmHg (80.0-100.0); Total Hemoglobin 11.4 g/dL (14-18)
[2020-01-10] MEDS: azithromycin 500 MG in sodium chloride 0.9% 250 ML 250 MG IV (13:24)
[2020-01-10 13:53] LABS: Basophils % 0.3 %; Eosinophils # 0.1 10^3/uL (0.0-0.8); Eosinophils % 0.6 %; Hematocrit 33.6 % (42.0-52.0); Hemoglobin 10.5 g/dL (11.7-16.6); Lymphocytes # 0.6 10^3/uL (0.8-4.8); Mean Corpuscular HGB Conc 31.3 g/dL (30.0-36.0); Mean Corpuscular Hemoglobin 30.1 pg (28.0-34.0); Mean Corpuscular Volume 96.3 fL (80-94); Mean Platelet Volume 10.1 fL (7.4-10.4); Monocytes # 0.5 10^3/uL (0.2-0.9); Monocytes % 3.4 %; Neutrophils # 13.4 10^3/uL (1.8-7.7); Neutrophils % 91.4 %; Nucleated Red Blood Cells % 0 %; Platelet Count 220 10^3/cmm (130-400); Red Blood Count 3.49 10^6/uL (4.1-5.3); Red Cell Distribution Width 13.5 % (12.1-15.1); White Blood Count 14.7 10^3/uL (4.0-10.0)
[2020-01-10 14:04] LABS: INR 1.15 (0.8-1.2)
[2020-01-10 14:10] LABS: Troponin(5th) Baseline 19 ng/mL (0-15)
[2020-01-10 14:11] LABS: Alanine Aminotransferase 6 U/L (0-41); Albumin Level 3.3 g/dL (3.5-5.2); Alkaline Phosphatase 98 IU/L (40-130); Anion Gap 15.4 (5-19); Aspartate Amino Transferase 16 U/L (0-40); Blood Urea Nitrogen 24 mg/dL (8-23); Calcium 9.3 mg/dL (8.5-10.5); Carbon Dioxide 30 mmol/L (22-29); Chloride 93 mmol/L (98-107); Globulin 4.1 g/dL (1.3-4.6); Glomerular Filtration Rate 111.5 mL/min (90-130); Glucose 176 mg/dL (65-115); Potassium 4.4 mmol/L (3.5-5.1); Sodium 134 mmol/L (136-145); Total Bilirubin 0.6 mg/dL (0.15-1.2); Total Protein 7.4 g/dL (6.6-8.7)
[2020-01-10 14:21] LABS: Lactic Sepsis W/Reflex 1.4 mmol/L (0.5-2.2)
--- NOTE | 2020-01-10 14:38 | ECG_ITS ---
Measurements Intervals [place] Rate: 112 P: 56 OR: 157 QRS: 14 QRSD: 74 T: 39 QT: 303 QTc: 414 SINUS TACHYCARDIA ABNORMAL RHYTHM ECG INTERPRETATION BASED ON A DEFAULT AGE OF 40 YEARS Compared to ECG 12/15/2019 02:30:46 Sinus rhythm no longer present Electronically Signed On 01-10-2020 20:52:07 PERSONAL CARE HOME ADMINISTRATOR by Lynne Goldberg M.D. [email or web address]
[2020-01-10 15:23] LABS: Add Urine Microscopic? YES; Bilirubin Urine Neg (NEGATIVE); Blood Urine Neg (Negative); Glucose Urine UA Norm (Normal); Ketones Urine Negative (Negative); Leukocyte Esterase Urine Negative (Negative); Nitrate Urine Negative (Negative); Protein Urine 1+ (Negative); Urine Appearance Clear (CLEAR); Urine Color Yellow (Yellow); Urobilinogen Urine 4 mg/dL (Negative)
[2020-01-10 15:25] LABS: Sulfosalicylic Acid Urine Positive
[2020-01-10 15:27] LABS: RBC Urine RARE /hpf (0-2)
[2020-01-10 15:28] LABS: Add Urine Culture? No; Bacteria Urine TRACE; Mucus Urine TRACE; Squamous Epithelial Cell Urine 0-4 (0-5)
--- NOTE | 2020-01-10 15:33 | PM.HP ---
Providers/Chief Complaint Chief Complaint: Pneumonia History of Present Illness Shawanda Weeks JR is a 69 year old male that presented to the emergency department with feeling poorly last night, and with difficulty breathing. He was recently discharged from the hospital with probable aspiration pneumonitis. He reports he felt as if he had some fevers. He did take an Augmentin last night as he has this on hand in case he has a recurrent infection. He reports no vomiting. He reports he is not taking anything by mouth, only by PEG tube. He reports no diarrhea. Review of Systems General: Reports: 10 or more systems reviewed and unremarkable except in HPI and below Const: Reports: fever, chills and fatigue Eyes: Denies: blurry vision ENMT: Denies: throat pain Card: Denies: chest pain Resp: Reports: shortness of breath and productive cough GI: Denies: abdominal pain or vomiting : Denies: difficulty urinating Musc: Denies: back pain Skin/Breast: Denies: rash Psych: Denies: anxiety Endo: Denies: excessive urination Manan/Lymph: Denies: easy bleeding All/Imm: Denies: hives Medications/Allergies Home Medications Medication Instructions Recorded Confirmed Last Taken Type albuterol sulfate 1 inh INHALATION QID PRN 01/10/20 01/10/20 Unknown History amoxicillin-pot clavulanate 1 tab PO BID PRN 01/10/20 01/10/20 01/09/20 History [Augmentin] aspirin [Aspir-81] 81 mg PO DAILY 01/10/20 01/10/20 01/09/20 History gabapentin 400 mg PO TID 01/10/20 01/10/20 01/09/20 History metformin 500 mg PO BID 01/10/20 01/10/20 01/09/20 History omeprazole 20 mg PO DAILY 01/10/20 01/10/20 01/09/20 History oxycodone-acetaminophen 1 tab PO TID PRN 01/10/20 01/10/20 01/09/20 History Allergies Allergy/AdvReac Type Severity Reaction Status Date / Time morphine Allergy ADR-Vomitin Verified 12/14/19 19:47 g PFSH Acute PFSH: Medical History (Updated 01/10/20 @ 16:00 by Mario López MD) Cancer R tonsillar squamous cell carcinoma Cellulitis COPD (chronic obstructive pulmonary disease) Diabetes mellitus Dysphagia Emphysema of lung Gastritis Gastroesophageal reflux Hypothyroidism Lung disease MRSA (methicillin resistant Staphylococcus aureus) Neuropathy 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 Thyroid disease Surgical History (Updated 01/10/20 @ 15:57 by Mario López MD) History of gastrostomy tube placement History of neck surgery History of shoulder surgery History of tonsillectomy Family History Mother Cancer Lung cancer Other CAD (coronary artery disease) Diabetes Social History Smoking and tobacco status: never smoked Alcohol intake: never Lives independently: Yes Vitals/I&O/Wt Last Vital Signs Temp 103.4 F H 01/10/20 14:09 Pulse 130 H 01/10/20 14:09 Resp 14 01/10/20 14:09 BP 106/57 01/10/20 14:09 Pulse Ox 98 01/10/20 14:09 Weight last 48 hrs Weight 46.72 kg Physical Exam Narrative: EXAM NARRATIVE: General exam is a cachectic white male, with moderate tachypnea on a nonrebreather HEENT: Pupils equally round. Oropharynx clear. Mucous membranes dry Neck is supple, no lymphadenopathy or thyromegaly Cardiovascular tachycardic without murmur Lungs coarse breath sounds bilaterally but no wheezing. Abdomen is soft with positive bowel sounds. No obvious organomegaly, PEG tube noted was deferred Extremities no cyanosis clubbing or edema Back demonstrates sacral stage II decubitus Neuro no focal deficits Sepsis: Is patient septic: Yes Focused sepsis exam performed: Yes Date exam was performed: 01/10/20 Time exam was performed: 14:35 Data : 01/10/20 13:43 01/10/20 13:43 Micro: Microbiology 01/10/20 13:35 Blood Culture - Preliminary Blood SPECIMEN COLLECTED 01/10/20 13:15 Blood Culture - Preliminary Blood SPECIMEN COLLECTED A&P Assessment and plan (1) Sepsis: Fluid boluses given in the emergency department. Lactic acid was not elevated, but he is febrile, had borderline hypotension, tachycardic, and locus of pneumonia right lung. Status: Acute Code(s): A41.9 - Sepsis, unspecified organism (2) Pneumonia: Probably secondary to aspiration pneumonitis. Initiate vancomycin and Zosyn Pulmonary toilet Oxygen as needed BiPAP will be initiated if worsens Sputum culture Status: Acute Qualifiers: Pneumonia type: due to unspecified organism Laterality: left Lung location: lower lobe of lung Qualified Code(s): J18.9 - Pneumonia, unspecified organism Code(s): J18.9 - Pneumonia, unspecified organism (3) Leukocytosis: Secondary to sepsis Status: Acute Code(s): D72.829 - Elevated white blood cell count, unspecified (4) COPD (chronic obstructive pulmonary disease): No evidence of acute exacerbation Albuterol and Atrovent every 4 hours Status: Acute Qualifiers: COPD type: unspecified COPD Qualified Code(s): J44.9 - Chronic obstructive pulmonary disease, unspecified Code(s): J44.9 - Chronic obstructive pulmonary disease, unspecified Additional A&P Information Dysphagia with history of PEG placement. NPO for now History of tonsillar cancer, non-small cell cancer right upper lobe GERD Anemia Type 2 diabetes. Will provide sliding scale insulin Appears to have moderate to severe protein calorie malnutrition Discussed with patient CODE STATUS. He is currently a full code. Attestations Medical Necessity Statement*: Will need greater than 2 midnight stay for treatment of pneumonia with IV antibiotics Time Spent in Patient Care: Greater than 35 minutes Coding Level of Care Code Acute Extension Service Specialist In Charge for Chg Fwd Diagnoses Sepsis A41.9 Pneumonia J18.9 Pneumonia type: due to unspecified organism Laterality: left Lung location: lower lobe of lung Leukocytosis D72.829 COPD (chronic obstructive pulmonary disease) J44.9 COPD type: unspecified COPD
[2020-01-10 15:52] LABS: Influenza A by IFA Negative (Negative); Influenza B by IFA Negative (Negative)
[2020-01-10 16:23] LABS: Troponin 5 2HR 17.42 ng/mL (0-15)
[2020-01-10 16:26] LABS: Troponin 5 2HR Delta -1.58 ABS# (0-10)
[2020-01-10] MEDS: sodium chloride 0.9% 1,000 ML 150 ML IV (17:55)
[2020-01-10] MEDS: piperacillin-tazobactam 3.375 GM in sodium chloride 0.9% (plus) 50 ML IV (17:59)
[2020-01-10] MEDS: enoxaparin 40 mg/0.4 mL Syringe SUBCUT (18:00)
[2020-01-10 18:20] LABS: Glucose Point of Care 128 mg/dL (70-110)
--- NOTE | 2020-01-10 18:38 | ECG_ITS ---
Measurements Intervals [place] Rate: 133 P: 52 [place]: 168 QRS: 48 QRSD: 64 T: 62 QT: 252 QTc: 376 SINUS TACHYCARDIA LOW QRS VOLTAGE IN EXTREMITY LEADS [QRS DEFLECTION < 0.5 mV IN LIMB LEADS] ABNORMAL RHYTHM ECG Compared to ECG 12/15/2019 02:30:46 Sinus rhythm no longer present Electronically Signed On 01-10-2020 20:52:02 CIVIL DESIGN SPECIALIST by Lynne Goldberg M.D. [id number]
[2020-01-10 20:44] LABS: Troponin 5 6HR 16.75 ng/mL (0-15)
[2020-01-10 20:48] LABS: Troponin 5 6HR Delta -2.25 ng/L (0-12)
[2020-01-10] MEDS: oxyCODONE-APAP 5-325 mg Tablet 1 TAB PO (20:49)
[2020-01-10] MEDS: gabapentin 400 mg Capsule PO (20:49)
[2020-01-10] MEDS: vancomycin 750 MG in sodium chloride 0.9% 250 ML 250 MG IV (23:12)
[2020-01-10] MEDS: sodium chloride 0.9% 500 ML IV (23:44)
[2020-01-11] VITALS (46 sets, daily range): BP systolic 73–117; BP diastolic 31–64; PULSE 75–106; RESP 8–37; TEMP 36.7–37.1; O2SAT 88–100
[2020-01-11] MEDS: piperacillin-tazobactam 3.375 GM in sodium chloride 0.9% (plus) 50 ML IV ×3 (02:11→17:35)
[2020-01-11] MEDS: sodium chloride 0.9% 1,000 ML 150 ML IV (02:12)
[2020-01-11] MEDS: ipratropium-albuterol 3 mL Neb INHALATION ×4 (03:07→20:07)
[2020-01-11 05:40] LABS: Glucose Point of Care 130 mg/dL (70-110)
[2020-01-11 05:48] LABS: Basophils % 0.2 %; Hematocrit 30.3 % (42.0-52.0); Hemoglobin 9.1 g/dL (11.7-16.6); Lymphocytes # 1.4 10^3/uL (0.8-4.8); Lymphocytes % 11.3 %; Mean Corpuscular Hemoglobin 30.4 pg (28.0-34.0); Mean Corpuscular Volume 101.3 fL (80-94); Mean Platelet Volume 10.5 fL (7.4-10.4); Monocytes # 0.5 10^3/uL (0.2-0.9); Neutrophils # 10.7 10^3/uL (1.8-7.7); Neutrophils % 84.3 %; Nucleated Red Blood Cells % 0 %; Platelet Count 182 10^3/cmm (130-400); Red Blood Count 2.99 10^6/uL (4.1-5.3); Red Cell Distribution Width 13.3 % (12.1-15.1); White Blood Count 12.7 10^3/uL (4.0-10.0)
[2020-01-11 06:06] LABS: Anion Gap 13.1 (5-19); Blood Urea Nitrogen 17 mg/dL (8-23); Calcium 8.5 mg/dL (8.5-10.5); Carbon Dioxide 27 mmol/L (22-29); Chloride 105 mmol/L (98-107); Glomerular Filtration Rate 164.4 mL/min (90-130); Glucose 173 mg/dL (65-115); Osmolality Calculated 293 mOsm/kg (285-295); Potassium 4.1 mmol/L (3.5-5.1); Sodium 141 mmol/L (136-145)
--- NOTE | 2020-01-11 07:17 | PC.NURSE ---
SHIFT SUMMARY PT LUNGS GO FROM COARSE TO CLEAR/DIMINISHED. PT HAS HAD ADEQUATE URINE OUTPUT. PT RECEIVED ONE 500ML BOLUS PER DR HORVATH BECAUSE OF BLOOD PRESSURE. PT HAS FLUIDS GOING AT 150ML/HR. PT HAS NOT HAD ANY COMPLAINTS. PT IV REMAINS PATENT.
[2020-01-11 08:17] LABS: Slide Review Slide Review Perform
[2020-01-11 08:32] LABS: Glucose Point of Care 150 mg/dL (70-110)
[2020-01-11] MEDS: aspirin 81 mg EC Tablet PO (08:46)
[2020-01-11] MEDS: gabapentin 400 mg Capsule PO ×3 (08:49→21:28)
[2020-01-11] MEDS: pantoprazole DR 40 mg Tablet PO (08:49)
[2020-01-11] MEDS: oxyCODONE-APAP 5-325 mg Tablet 1 TAB PO ×2 (08:56→15:53)
--- NOTE | 2020-01-11 09:29 | PC.CHAP ---
Pastoral Care Encounter/Spiritual Assessment Type of Contact [] Declined director security risk management visit [] Patient/Family/Request visit [] Outpatient visit [] Follow-up visit [] Physician referral [] Code/Alert [x] Routine visit [] Staff referral [] Actively dying [x] Patient sleeping [] Family support [] [] Out of room [] Palliative care [] [] Receiving care in room [] Pre-surgical visit [] Trauma [] Long length of stay [x] ICU visit [] Other: Relational/Emotional Strength [] Patient feels connected with others/family/visitors/staff [] Distress [] Loneliness/isolation [] Abandonment Spirituality of Patient [] Person of Mariela [] Attends Buddhist of their Mariela [] Believes in Prayer [] Reads Bible or Confucianist materials [] There are Spiritual issues to be addressed Mangle Operator Garments Interventions [] Prayer [] Active listening [] Non-anxious presence [] Spiritual/emotional support [] Crisis/trauma care [] Spiritual counseling [] Bereavement support [] Provided bereavement packet [] Provided Bible/devotional materials [] Provided toy/stuffed animal, coloring book to patient or family member [] Provided Communion [] Anointing/[place] [] Salvation [] Completed spiritual assessment [] Other: Impact on Illness or Injury [] Angry [] Fearful [] Anxious [] Often cries [] Exhaustion [] Unable to work [] Unable to attend zoroastrianism [] Unable to walk/stand [] Unable to read [] Unable to drive [] Unable to eat/drink [] Unable to sleep [] Unable to be with family [] Patient intubated [] Other: Summary amelia didn't enter room Time spent with patient
--- NOTE | 2020-01-11 10:42 | PM.PN ---
Subjective Subjective: Interval history: Shawanda reports he is breathing easier. Still coughing some. Ready to have his PEG tube feedings restarted. Medications: Reviewed: Yes Vitals/I&O/Wt Last Vital Signs Temp 98.8 F 01/11/20 09:00 Pulse 100 01/11/20 09:00 Resp 25 H 01/11/20 09:00 BP 106/56 01/11/20 09:00 Pulse Ox 92 01/11/20 09:00 01/10/20 01/11/20 01/11/20 22:59 06:59 14:59 Intake Total 50 / 50 1170 / 1220 955 / 955 Output Total 400 / 400 500 / 500 Balance -350 / -350 1170 / 820 455 / 455 Weight last 48 hrs Weight 46.72 kg Physical Exam Narrative: EXAM NARRATIVE: General exam no apparent distress Cardiovascular regular rate and rhythm frequent premature beat, 3/6 systolic murmur Lungs few coarse breath sounds at the bases Abdomen is soft with positive bowel sounds Extremities no cyanosis clubbing or edema Data : 01/11/20 04:42 01/11/20 04:42 Micro: Microbiology 01/10/20 13:35 Blood Culture - Preliminary Blood SPECIMEN COLLECTED 01/10/20 13:15 Blood Culture - Preliminary Blood SPECIMEN COLLECTED A&P Assessment and plan (1) Sepsis: Appears to be significantly resolving. Will decrease fluids significantly. Start intake by PEG tube. Continue to elevate head of bed in case aspiration is present Status: Acute Code(s): A41.9 - Sepsis, unspecified organism (2) Pneumonia: Probably secondary to aspiration pneumonitis. Continue vancomycin and Zosyn Pulmonary toilet Wean oxygen as tolerated Await sputum culture Status: Acute Qualifiers: Pneumonia type: due to unspecified organism Laterality: left Lung location: lower lobe of lung Qualified Code(s): J18.9 - Pneumonia, unspecified organism Code(s): J18.9 - Pneumonia, unspecified organism (3) Leukocytosis: Secondary to sepsis. Improving Status: Acute Code(s): D72.829 - Elevated white blood cell count, unspecified (4) COPD (chronic obstructive pulmonary disease): No evidence of acute exacerbation Albuterol and Atrovent every 4 hours Status: Acute Qualifiers: COPD type: unspecified COPD Qualified Code(s): J44.9 - Chronic obstructive pulmonary disease, unspecified Code(s): J44.9 - Chronic obstructive pulmonary disease, unspecified Additional A&P Information Dysphagia with history of PEG placement. Will restart PEG tube feedings. Keep head of bed elevated at least 40 degrees History of tonsillar cancer, non-small cell cancer right upper lobe GERD Anemia Type 2 diabetes. Will provide sliding scale insulin Appears to have moderate to severe protein calorie malnutrition Discussed with patient CODE STATUS. He is currently a full code. Lovenox for DVT prophylaxis If able to wean oxygen, consider transfer out of ICU today. Attestations Medical Necessity Statement*: Needs continued hospitalization for IV antibiotics secondary to pneumonia Coding Level of Care Code Acute Director Of Nuclear Medicine for [facility] Fwd Diagnoses Sepsis A41.9 Pneumonia J18.9 Pneumonia type: due to unspecified organism Laterality: left Lung location: lower lobe of lung Leukocytosis D72.829 COPD (chronic obstructive pulmonary disease) J44.9 COPD type: unspecified COPD
[2020-01-11 11:57] LABS: Glucose Point of Care 111 mg/dL (70-110)
[2020-01-11] MEDS: sodium chloride 0.9% 1,000 ML 75 ML IV (15:52)
[2020-01-11] MEDS: vancomycin 750 MG in sodium chloride 0.9% 250 ML 250 MG IV (16:27)
[2020-01-11] MEDS: enoxaparin 40 mg/0.4 mL Syringe SUBCUT (17:36)
[2020-01-11 18:14] LABS: Glucose Point of Care 255 mg/dL (70-110)
[2020-01-12] VITALS (16 sets, daily range): BP systolic 86–142; BP diastolic 32–64; PULSE 85–111; RESP 15–37; TEMP 36.4–37.7; O2SAT 90–97
[2020-01-12] MEDS: piperacillin-tazobactam 3.375 GM in sodium chloride 0.9% (plus) 50 ML IV ×3 (00:55→18:00)
[2020-01-12] MEDS: oxyCODONE-APAP 5-325 mg Tablet 1 TAB PO ×2 (04:46→20:14)
[2020-01-12] MEDS: sodium chloride 0.9% 1,000 ML 75 ML IV (04:46)
[2020-01-12 05:27] LABS: Basophils % 0.2 %; Eosinophils % 0.1 %; Hematocrit 29.2 % (42.0-52.0); Hemoglobin 8.8 g/dL (11.7-16.6); Lymphocytes # 0.9 10^3/uL (0.8-4.8); Lymphocytes % 7.3 %; Mean Corpuscular HGB Conc 30.1 g/dL (30.0-36.0); Mean Corpuscular Hemoglobin 29.4 pg (28.0-34.0); Mean Corpuscular Volume 97.7 fL (80-94); Mean Platelet Volume 10.4 fL (7.4-10.4); Monocytes # 0.5 10^3/uL (0.2-0.9); Neutrophils # 11.2 10^3/uL (1.8-7.7); Neutrophils % 87.7 %; Nucleated Red Blood Cells % 0 %; Platelet Count 189 10^3/cmm (130-400); Red Blood Count 2.99 10^6/uL (4.1-5.3); Red Cell Distribution Width 13.5 % (12.1-15.1); White Blood Count 12.7 10^3/uL (4.0-10.0)
[2020-01-12 05:39] LABS: Blood Urea Nitrogen 15 mg/dL (8-23); Calcium 8.7 mg/dL (8.5-10.5); Carbon Dioxide 27 mmol/L (22-29); Chloride 104 mmol/L (98-107); Glomerular Filtration Rate 164.4 mL/min (90-130); Glucose 109 mg/dL (65-115); Osmolality Calculated 285 mOsm/kg (285-295); Sodium 139 mmol/L (136-145)
[2020-01-12] MEDS: ipratropium-albuterol 3 mL Neb INHALATION ×2 (07:46→11:42)
--- NOTE | 2020-01-12 07:57 | XR_ITS ---
WS: [id number] XR chest 1V portable [id number] REASON FOR EXAM: pneumonia FINDINGS: Comparisons were made to January 10, 2020. The diffuse pneumonia previously described has increased involving the right upper lung and there is some atelectasis seen in the right upper lung. There is now evidence of a alveolar infiltrate in the right lower lung markedly increased since previ ous exam. In the left lower lung there is small amount of left pleural effusion. The heart remains similar. XR/XR chest 1V portable [id number] IMPRESSION: Progressive right lung pneumonia upper and lower increased since previous exam. There is slight increased left pleural effusion.
--- NOTE | 2020-01-12 07:57 | PM.PN ---
Subjective Subjective: Interval history: Feels a little bit better. Coughing frequently. Denies any chest pain. Medications: Reviewed: Yes Vitals/I&O/Wt Last Vital Signs Temp 97.6 F 01/12/20 07:30 Pulse 85 01/12/20 07:49 Resp 16 01/12/20 07:49 BP 86/32 01/12/20 07:30 Pulse Ox 96 01/12/20 07:49 01/11/20 01/12/20 01/12/20 22:59 06:59 14:59 Intake Total 390 / 2094 1591.5 / 3685.5 Output Total 320 / 820 550 / 1370 Balance 70 / 1274 1041.5 / 2315.5 Weight last 48 hrs Weight 46.72 kg Physical Exam Narrative: EXAM NARRATIVE: General exam no apparent distress, cachectic appearing Cardiovascular regular rate and rhythm frequent premature beat, 3/6 systolic murmur Lungs f coarse breath sounds and crackles bibasilar Abdomen is soft with positive bowel sounds Extremities no cyanosis clubbing or edema Data : 01/12/20 04:24 01/12/20 04:24 Micro: Microbiology 01/10/20 12:59 Urine Culture - Final Urine Catheterized 01/10/20 13:35 Blood Culture - Preliminary Blood NEGATIVE TO DATE 01/10/20 13:15 Blood Culture - Preliminary Blood NEGATIVE TO DATE Other data: Review of chest x-ray which is yet to be read demonstrates slight amount of fluid, with left costophrenic angle blunting. Right side demonstrates extensive infiltrate, with atelectasis. A&P Assessment and plan (1) Sepsis: Improved. Discontinue fluids. He has a little bit of costophrenic angle blunting on his x-ray and I suspect he may be getting wet. Hold any Lasix however, secondary to borderline hypotension. Continue nutrition by PEG tube. Continue to elevate head of bed in case aspiration is present Status: Acute Code(s): A41.9 - Sepsis, unspecified organism (2) Pneumonia: Probably secondary to aspiration pneumonitis. Continue vancomycin and Zosyn Pulmonary toilet Wean oxygen as tolerated Await sputum culture Chest x-ray shows atelectasis today. Start Acapella, repeat x-ray tomorrow. Add Mucinex. Conceivably might need bronchoscopy but will reevaluate tomorrow Status: Acute Qualifiers: Pneumonia type: due to unspecified organism Laterality: left Lung location: lower lobe of lung Qualified Code(s): J18.9 - Pneumonia, unspecified organism Code(s): J18.9 - Pneumonia, unspecified organism (3) Leukocytosis: Secondary to sepsis. Improved from admission Status: Acute Code(s): D72.829 - Elevated white blood cell count, unspecified (4) COPD (chronic obstructive pulmonary disease): Albuterol and Atrovent every 4 hours Add prednisone 40 mg daily Status: Acute Qualifiers: COPD type: unspecified COPD Qualified Code(s): J44.9 - Chronic obstructive pulmonary disease, unspecified Code(s): J44.9 - Chronic obstructive pulmonary disease, unspecified Additional A&P Information Dysphagia with history of PEG placement. Will restart PEG tube feedings. Keep head of bed elevated at least 40 degrees History of tonsillar cancer, non-small cell cancer right upper lobe GERD Anemia Type 2 diabetes. Will provide sliding scale insulin Appears to have moderate to severe protein calorie malnutrition Discussed with patient CODE STATUS. He is currently a full code. Lovenox for DVT prophylaxis Attestations Medical Necessity Statement*: Needs continued hospital stay for IV antibiotics secondary to extensive pneumonia. Coding Level of Care Code Acute Awning Frame Maker for [facility] Fwd Diagnoses Sepsis A41.9 Pneumonia J18.9 Pneumonia type: due to unspecified organism Laterality: left Lung location: lower lobe of lung Leukocytosis D72.829 COPD (chronic obstructive pulmonary disease) J44.9 COPD type: unspecified COPD
--- NOTE | 2020-01-12 09:28 | PC.NUTR ---
NUTR TF RECOMMENDATIONS: Glucerna with goal rate of 35 ml/hr providing 1008 kcal (93%), 50 g PRO (106%), and 676 ml fluid (62%)(%NEEDS). Suggest starting TF at 15 ml/hr and increase by 10 ml Q6H as tolerated till goal rate is met. Suggest H2O flushes of 50 ml Q4H to approach fluid needs or per physician.
[2020-01-12 09:46] LABS: Vancomycin Trough 7.8 ug/mL (10-15)
[2020-01-12] MEDS: aspirin 81 mg EC Tablet PO (10:26)
[2020-01-12] MEDS: predniSONE 20 mg Tablet 40 MG PO (10:27)
[2020-01-12] MEDS: guaiFENesin 600 mg Tablet PO ×2 (10:27→18:01)
[2020-01-12] MEDS: pantoprazole DR 40 mg Tablet PO (10:27)
[2020-01-12] MEDS: gabapentin 400 mg Capsule PO ×3 (10:27→20:08)
[2020-01-12] MEDS: vancomycin 750 MG in sodium chloride 0.9% 250 ML 250 MG IV ×2 (10:33→22:14)
[2020-01-12 10:54] LABS: Glucose Point of Care 300 mg/dL (70-110)
--- NOTE | 2020-01-12 15:49 | PC.NURSE ---
report faxed to [facility]. Further report called and given to CHARITY Sen. Pt has PEG connector tube with hi. He was just incontinent of BM, we provided perciare.
[2020-01-12 16:14] LABS: Glucose Point of Care 313 mg/dL (70-110)
--- NOTE | 2020-01-12 16:14 | PC.NURSE ---
Pt transferred to [facility] via W/C and O2. CHAMFERING MACHINE OPERATOR assisted settling pt into new room, 258. O2 at 6 lpm/Hi-Flow.
[2020-01-12 17:45] LABS: Glucose Point of Care 75 mg/dL (70-110)
[2020-01-12 17:45] LABS: Glucose Point of Care 253 mg/dL (70-110)
[2020-01-12] MEDS: enoxaparin 40 mg/0.4 mL Syringe SUBCUT (18:00)
[2020-01-12 20:07] LABS: Glucose Point of Care 316 mg/dL (70-110)
[2020-01-13] VITALS (10 sets, daily range): BP systolic 110–145; BP diastolic 54–77; PULSE 67–89; RESP 16–20; TEMP 36.3–36.6; O2SAT 91–99
[2020-01-13] MEDS: piperacillin-tazobactam 3.375 GM in sodium chloride 0.9% (plus) 50 ML IV ×3 (01:14→17:30)
--- NOTE | 2020-01-13 05:00 | PC.NURSE ---
Bowel movement had putty-like consistency.
[2020-01-13 06:30] LABS: Glucose Point of Care 122 mg/dL (70-110)
[2020-01-13 07:15] LABS: Basophils % 0.1 %; Hematocrit 29.7 % (42.0-52.0); Hemoglobin 9.2 g/dL (11.7-16.6); Lymphocytes # 1.2 10^3/uL (0.8-4.8); Lymphocytes % 11.6 %; Mean Corpuscular Hemoglobin 30.9 pg (28.0-34.0); Mean Corpuscular Volume 99.7 fL (80-94); Mean Platelet Volume 10.4 fL (7.4-10.4); Monocytes # 0.4 10^3/uL (0.2-0.9); Monocytes % 3.9 %; Neutrophils # 8.4 10^3/uL (1.8-7.7); Neutrophils % 83.8 %; Nucleated Red Blood Cells % 0 %; Platelet Count 179 10^3/cmm (130-400); Red Blood Count 2.98 10^6/uL (4.1-5.3); Red Cell Distribution Width 13.4 % (12.1-15.1); White Blood Count 10.1 10^3/uL (4.0-10.0)
[2020-01-13 07:21] LABS: Anion Gap 11.1 (5-19); Blood Urea Nitrogen 16 mg/dL (8-23); Carbon Dioxide 28 mmol/L (22-29); Chloride 104 mmol/L (98-107); Glomerular Filtration Rate 164.4 mL/min (90-130); Glucose 132 mg/dL (65-115); Osmolality Calculated 286 mOsm/kg (285-295); Potassium 4.1 mmol/L (3.5-5.1); Sodium 139 mmol/L (136-145)
--- NOTE | 2020-01-13 07:51 | XR_ITS ---
WS: [id number] XR chest 1V portable [id number] REASON FOR EXAM: pneumonia FINDINGS: The pneumonia in the right lung is unchanged since earlier exam of January 12, 2020. Right upper lung and lower lung infiltrates are seen. There is left pleural effusion obliterating the costophrenic angle. The heart is not grossly enlarged arteriosclerotic changes are seen. XR/XR chest 1V portable [id number] IMPRESSION: Persistent pneumonia on the right upper lung and right lower lung basically unc hanged since earlier exam Left pleural effusion.
[2020-01-13] MEDS: pantoprazole 40 mg SDV IVP (09:43)
[2020-01-13] MEDS: guaiFENesin 600 mg Tablet PO ×2 (09:43→17:31)
[2020-01-13] MEDS: gabapentin 400 mg Capsule PO ×3 (09:43→20:35)
[2020-01-13] MEDS: predniSONE 20 mg Tablet 40 MG PO (09:43)
[2020-01-13] MEDS: aspirin 81 mg Chew Tablet PO (09:43)
[2020-01-13] MEDS: oxyCODONE-APAP 5-325 mg Tablet 1 TAB PO ×2 (10:20→17:39)
--- NOTE | 2020-01-13 11:12 | DCPLANNER ---
Pg 2 of IM explained to and signed by pt. No questions, he is familiar with the message. Copy provided.
[2020-01-13 12:40] LABS: Glucose Point of Care 223 mg/dL (70-110)
[2020-01-13 13:04] LABS: Vancomycin Trough 8.2 ug/mL (10-15)
--- NOTE | 2020-01-13 14:06 | PC.RESP ---
Patient given information on Pulmonary Rehab.
[2020-01-13] MEDS: vancomycin 1,000 MG in sodium chloride 0.9% 250 ML 250 MG IV (14:48)
[2020-01-13 17:09] LABS: Glucose Point of Care 290 mg/dL (70-110)
[2020-01-13] MEDS: enoxaparin 40 mg/0.4 mL Syringe SUBCUT (17:31)
[2020-01-13 20:34] LABS: Glucose Point of Care 326 mg/dL (70-110)
--- NOTE | 2020-01-13 20:47 | P.PN_ITS ---
Subjective Subjective: Interval history: He reports he is feeling a little bit better. Vitals/I&O/Wt Last Vital Signs Temp 97.9 F 01/13/20 19:50 Pulse 81 01/13/20 19:50 Resp 20 H 01/13/20 19:50 BP 117/67 01/13/20 19:50 Pulse Ox 93 01/13/20 19:50 01/13/20 01/13/20 01/13/20 06:59 14:59 22:59 Intake Total 450 / 1754 1183 / 1183 640 / 1823 Output Total 700 / 950 Balance -250 / 804 1183 / 1183 640 / 1823 Physical Exam Const: COMMON NORMALS: no apparent distress and oriented x3 HENMT: COMMON NORMALS: oropharynx normal Neck/C-Spine: COMMON NORMALS: no JVD OTHER: Chronic scarring status post right side neck dissection, radiation therapy. Resp: COMMON NORMALS: normal respiratory effort AUSCULTATION: diminished lung sounds on the right Cardio: COMMON NORMALS: no JVD, regular rhythm, S1 normal heart sound, S2 normal heart sound and no murmurs RHYTHM: regular rhythm HEART SOUNDS: S1 normal and S2 normal GI: COMMON NORMALS: normal to inspection, nondistended, normoactive bowel sounds, soft to palpation and non-tender PALPATION: Yes soft Extremity: COMMON NORMALS: no joint enlargement and no pedal edema Neuro: COMMON NORMALS: oriented x3 and moves all extremities Skin: COMMON NORMALS: no rashes or lesions noted GENERAL SKIN EXAM: no rashes or lesions noted Data : 01/13/20 06:28 01/13/20 06:28 Micro: Microbiology 01/12/20 19:15 MRSA Culture - Final Nose 01/11/20 23:15 Gram Stain - Final Sputum - Expectorated Sputum Sputum Culture - Preliminary Staphylococcus aureus A&P Assessment and plan (1) Pneumonia: Chronic aspiration. Unfortunately prognosis is very poor. Hospice was mentioned as an option during 1 of the prior hospitalization, although appears she has not yet felt ready. Staph aureus growing from sputum culture. MRSA colonization. Continue vancomycin and Zosyn Pulmonary toilet Wean oxygen as tolerated Await final sputum culture. Continue Mucinex. Breathing treatments. N.p.o. Status: Acute Qualifiers: Pneumonia type: due to unspecified organism Laterality: left Lung location: lower lobe of lung Qualified Code(s): J18.9 - Pneumonia, unspecified organism Code(s): J18.9 - Pneumonia, unspecified organism (2) Sepsis: Improved. Status: Acute Code(s): A41.9 - Sepsis, unspecified organism (3) Leukocytosis: Secondary to sepsis. Improved from admission Status: Acute Code(s): D72.829 - Elevated white blood cell count, unspecified (4) COPD (chronic obstructive pulmonary disease): Albuterol and Atrovent every 4 hours Was started on course of prednisone 40 mg daily Status: Acute Qualifiers: COPD type: unspecified COPD Qualified Code(s): J44.9 - Chronic obstructive pulmonary disease, unspecified Code(s): J44.9 - Chronic obstructive pulmonary disease, unspecified Additional A&P Information Dysphagia with history of PEG placement. Continue PEG tube feedings. Keep head of bed elevated at least 40 degrees History of tonsillar cancer, non-small cell cancer right upper lobe GERD Anemia Type 2 diabetes. Will provide sliding scale insulin Appears to have moderate to severe protein calorie malnutrition Attestations Medical Necessity Statement*: Continue to for assessment of management of recurrent aspiration pneumonia, improving sepsis. Coding Level of Care Code Acute Yarn Conditioner for [facility] Fwd Diagnoses Pneumonia J18.9 Pneumonia type: due to unspecified organism Laterality: left Lung location: lower lobe of lung Sepsis A41.9 Leukocytosis D72.829 COPD (chronic obstructive pulmonary disease) J44.9 COPD type: unspecified COPD
[2020-01-14] VITALS (11 sets, daily range): BP systolic 127–138; BP diastolic 51–78; PULSE 66–81; RESP 16–18; TEMP 36.3–36.7; O2SAT 90–97
[2020-01-14] MEDS: vancomycin 1,000 MG in sodium chloride 0.9% 250 ML 250 MG IV (00:39)
[2020-01-14] MEDS: piperacillin-tazobactam 3.375 GM in sodium chloride 0.9% (plus) 50 ML IV ×2 (03:36→08:49)
[2020-01-14 05:49] LABS: Basophils % 0.1 %; Hematocrit 32.1 % (42.0-52.0); Hemoglobin 10.1 g/dL (11.7-16.6); Lymphocytes # 1.7 10^3/uL (0.8-4.8); Mean Corpuscular HGB Conc 31.5 g/dL (30.0-36.0); Mean Corpuscular Hemoglobin 30.8 pg (28.0-34.0); Mean Corpuscular Volume 97.9 fL (80-94); Mean Platelet Volume 10.4 fL (7.4-10.4); Monocytes # 0.4 10^3/uL (0.2-0.9); Neutrophils # 8.9 10^3/uL (1.8-7.7); Neutrophils % 80.4 %; Nucleated Red Blood Cells % 0 %; Platelet Count 253 10^3/cmm (130-400); Red Blood Count 3.28 10^6/uL (4.1-5.3); Red Cell Distribution Width 13.2 % (12.1-15.1)
[2020-01-14] MEDS: oxyCODONE-APAP 5-325 mg Tablet 1 TAB PO ×2 (06:03→14:44)
[2020-01-14 06:44] LABS: Glucose Point of Care 130 mg/dL (70-110)
[2020-01-14] MEDS: aspirin 81 mg Chew Tablet PO (08:48)
[2020-01-14] MEDS: predniSONE 20 mg Tablet 40 MG PO (08:48)
[2020-01-14] MEDS: guaiFENesin 600 mg Tablet PO (08:48)
[2020-01-14] MEDS: pantoprazole 40 mg SDV IVP (08:49)
[2020-01-14] MEDS: gabapentin 400 mg Capsule PO ×2 (08:49→14:45)
[2020-01-14 11:38] LABS: Glucose Point of Care 272 mg/dL (70-110)
[2020-01-14 14:08] LABS: Vancomycin Trough 15.6 ug/mL (10-15)
[2020-01-14] MEDS: vancomycin 1,000 MG in sodium chloride 0.9% 250 ML 175 MG IV (14:44)
--- NOTE | 2020-01-14 19:29 | P.DS_ITS ---
Discharge Providers Date of Admission: 01/10/20 15:20 Date of Discharge: January 14, 2020 Attending Provider at Admission: Mario López MD Attending Provider at Discharge: Osvaldo Banks Diagnoses at Discharge Discharge Diagnosis (1) Pneumonia: Status: Acute Qualifiers: Pneumonia type: due to unspecified organism Laterality: left Lung location: lower lobe of lung Qualified Code(s): J18.9 - Pneumonia, unspecified organism (2) Sepsis: Status: Acute (3) Leukocytosis: Status: Acute (4) COPD (chronic obstructive pulmonary disease): Status: Acute Qualifiers: COPD type: unspecified COPD Qualified Code(s): J44.9 - Chronic obstructive pulmonary disease, unspecified Reason for Visit Reason for Visit: Reason For Visit: Pneumonia Hospital Course Hospital Course: 69-year-old gentleman with 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 He was admitted for assessment management of pneumonia which recurred despite recent treatment with Augmentin. COPD exacerbation. While in the hospital he was treated with Zosyn and vanc omycin for suspected aspiration pneumonia with multifocal pneumonia noted on chest x-ray. Small amount of Staphylococcus aureus grew from sputum culture, and he was found to be colonized with MRSA nasally. His oxygenation improved markedly from admission, and he reports feeling significantly better. Unfortunately process is chronic and will likely continue to recur to which she verbalizes understanding. Hospice apparently has been discussed during a prior admission, however, he has not been feeling ready yet. He is strictly observed n.p.o. status. He understands that unfortunately recurrent aspiration has been inevitable due to oral and respiratory secretions. At this time he will complete a course of doxycycline, prednisone taper, continue oxygen at home, and will follow-up with pulmonology in office for additional assessment and recommendations. He is currently down to 2 L nasal cannula oxygen, is feeling significantly stronger and ready to return home. Physical Exam Const: COMMON NORMALS: no apparent distress and oriented x3 HENMT: COMMON NORMALS: oropharynx normal Neck/C-Spine: COMMON NORMALS: no JVD OTHER: Chronic scarring status post right side neck dissection, radiation therapy. Resp: COMMON NORMALS: normal respiratory effort AUSCULTATION: diminished lung sounds on the right Cardio: COMMON NORMALS: no JVD, regular rhythm, S1 normal heart sound, S2 normal heart sound and no murmurs RHYTHM: regular rhythm HEART SOUNDS: S1 normal and S2 normal GI: COMMON NORMALS: normal to inspection, nondistended, normoactive bowel sounds, soft to palpation and non-tender PALPATION: Yes soft Extremity: COMMON NORMALS: no joint enlargement and no pedal edema Neuro: COMMON NORMALS: oriented x3 and moves all extremities Skin: COMMON NORMALS: no rashes or lesions noted GENERAL SKIN EXAM: no rashes or lesions noted Discharge Data Data Completed and Pending: Completed Studies During Hospitalization Category Date Time Status XR chest 1V moises ble [id number] Routine Exams 01/12/20 07:57 Completed XR chest 1V moises ble [id number] Routine Exams 01/13/20 07:51 Completed XR chest 1V moises ble [id number] Stat Exams 01/10/20 12:36 Completed Pending at discharge Category Date Time Status Blood Culture Sta t Lab 01/10/20 13:35 Results Labs from last 24 hours 01/14/20 01/14/20 01/14/20 13:32 11:33 06:41 WBC RBC Hgb Hct MCV MCH MCHC RDW Plt Count MPV Neut % (Auto) Lymph % (Auto) [place] % (Auto) Eos % (Auto) Baso % (Auto) Neut # (Auto) Lymph # (Auto) [place] # (Auto) Eos # (Auto) Baso # (Auto) Nucleated RBC % (a uto) Nucleated RBCs # POC Glucose 272 130 Vancomycin Trough 15.6 H 01/14/20 01/13/20 05:33 20:31 WBC 11.0 H RBC 3.28 L Hgb 10.1 L Hct 32.1 L MCV 97.9 H MCH 30.8 MCHC 31.5 RDW 13.2 Plt Count 253 MPV 10.4 Neut % (Auto) 80.4 Lymph % (Auto) 15.0 [place] % (Auto) 4.0 Eos % (Auto) 0.0 Baso % (Auto) 0.1 Neut # (Auto) 8.9 H Lymph # (Auto) 1.7 [place] # (Auto) 0.4 Eos # (Auto) 0.0 Baso # (Auto) 0.0 Nucleated RBC % (a uto) 0 Nucleated RBCs # 0.0 POC Glucose 326 Vancomycin Trough Vitals: Last Vital Signs Temp 97.8 F 01/14/20 15:57 Pulse 66 01/14/20 15:57 Resp 18 01/14/20 15:57 BP 138/78 01/14/20 15:57 Pulse Ox 94 01/14/20 15:57 Discharge Plan Discharge Patient Disposition: Home, Self-Care Condition: Stable Prescriptions: New prednisone 20 mg Tablet See Rx Instructions .ROUTE .COMPLEX Qty: 20 RF: 0 doxycycline hyclate 100 mg tablet 100 mg PO BID 7 Days Qty: 14 RF: 0 Continued gabapentin 400 mg Capsule 400 mg PO TID RF: 0 Aspir-81 81 mg Tablet,Delayed Release (Dr/Ec) 81 mg PO DAILY RF: 0 oxycodone-acetaminophen 5-325 mg Tablet 1 tab PO TID PRN (Reason: Pain) RF: 0 metformin 1,000 mg Tablet 500 mg PO BID RF: 0 omeprazole 20 mg Capsule,Delayed Release(Dr/Ec) 20 mg PO DAILY RF: 0 albuterol sulfate 90 mcg/actuation Hfa Aerosol Inhaler 1 inh INHALATION QID PRN (Reason: Shortness Of Breath) RF: 0 Discontinued amoxicillin-pot clavulanate [Augmentin] 875-125 mg tablet 1 tab PO BID PRN (Reason: PNEUMONIA) RF: 0 Discharge Orders: Discharge Order (Routine); Ordered 01/14/20 Ordered By: Osvaldo Banks Referrals: Leonel Abbasi [Family Provider] - 01/20/20 1:00 pm Ana Menjivar MD [Physician] - 01/20/20 9:30 am (Recurrent PNA, MRSA c olonization.) Discharge Diet: Resume prior tube feeds Discharge Activity: Increase activity as tolerated and Oxygen as instructed Patient Instructions: COPD, Doxycycline (By mouth), Prednisone (By mouth), Leukocytosis (DC), Peripheral Neuropathy (GEN), COPD Stoplight Activity Restrictions/Additional Instructions: Continue home oxygen as before. Continue nothing by mouth. Tube feeds as previously. Complete the course of doxycycline. After that, continue pill in the pocket strategy as discussed during prior admission with Dr. Herrera. Monitor blood glucose 3 times daily. Record values to bring to your appointment. Discharge Date/Time: 01/14/20 15:58 Discharge Attestations Time Spent in Discharge Care*: greater than 30 min Quality Metrics Clinical Quality Measures During this hospital stay, did patient experience: None Coding Level of Care Code Acute Accounting Generalist for [facility] Fwd Diagnoses Pneumonia J18.9 Pneumonia type: due to unspecified organism Laterality: left Lung location: lower lobe of lung Sepsis A41.9 Leukocytosis D72.829 COPD (chronic obstructive pulmonary disease) J44.9 COPD type: unspecified COPD
== END 2020-01-14 15:58 | disposition home or self-care (01) | DRG 871 ==
LOC: ER 12:48 → ICU 15:46 → MEDSURG 01-12 16:13
PROVIDERS: Admitting Provider Internal Medicine; Emergency Provider Emergency Medicine; Family Provider Internal Medicine; Visit Provider Internal Medicine
DX: A41.9 Sepsis, unspecified organism (principal); J69.0 Pneumonitis due to inhalation of food and vomit; E46 Unspecified protein-calorie malnutrition; Z68.1 Body mass index [BMI] 19.9 or less, adult; Z93.1 Gastrostomy status; Z85.818 Personal history of malignant neoplasm of other sites of lip, oral cavity, and pharynx; Z85.118 Personal history of other malignant neoplasm of bronchus and lung; E11.42 Type 2 diabetes mellitus with diabetic polyneuropathy; J43.9 Emphysema, unspecified; K21.9 Gastro-esophageal reflux disease without esophagitis; E03.9 Hypothyroidism, unspecified; Z86.14 Personal history of Methicillin resistant Staphylococcus aureus infection; Z83.3 Family history of diabetes mellitus; Z80.1 Family history of malignant neoplasm of trachea, bronchus and lung; Z82.49 Family history of ischemic heart disease and other diseases of the circulatory system; I95.9 Hypotension, unspecified; D64.9 Anemia, unspecified; Z79.84 Long term (current) use of oral hypoglycemic drugs; Z79.891 Long term (current) use of opiate analgesic; Z79.82 Long term (current) use of aspirin; R13.10 Dysphagia, unspecified; Z92.3 Personal history of irradiation; B95.62 Methicillin resistant Staphylococcus aureus infection as the cause of diseases classified elsewhere
CPT/HCPCS: 12345; 36415; 36416; 36600; 71045; 80048; 80053; 80202; 81001; 82805; 82962; 83605; 84484; 85025; 85610; 87040; 87070; 87077; 87086; 87186; 87205; 87641; 87804; 93005; 94640; 96372; 96375; 97110; 97116; 97161; 97530; 99283; C9113; J0456; J1650; J1815; J2543; J3370; J7030; J7040; J7050; J7512

== ENCOUNTER 2020-05-08 09:47 | Outpatient (CLI) | payer OTHER, SELFPAY ==
--- NOTE | 2020-05-08 10:15 | CT_ITS ---
WS: [id number] CT CHEST TECHNIQUE: Noncontrast CT of the chest with coronal and sagittal reformatted images. CLINICAL INFORMATION: Lung nodules COMPARISON: CT December 14, 2019 DLP: 614.[address] scans at [facility] use at least one of these dose optimization techniques: automat ed exposure control; mA and/or kV adjustment per patient size (includes targeted exams where dose is matched to clinical indication); or iterative reconstruction. FINDINGS: Mild chronic emphysematous changes. Previously described opacities in the left lower lobe have improv ed likely due to infectious or inflammatory pneumonia. Residual patchy opacities in the left lower lo be posteriorly. The left lower lobe lateral opacities have resolved. Tree-in-bud infiltrates within the right middle lobe and bilateral lower lobes are stable. Mild tract ion bronchiectasis in the right middle lobe. Small subpleural nodules in right lower lobe are unchan ged. Pleural thickening along the dorsal mediastinum right lower lobe is unchanged. Pleural thickenin g measures 1.6 x 0.8 cm.Stable pleural thickening in the left upper lobe along the mediastinum is als o unchanged measuring 1.0 x 3.5 cm. Aortic calcification. Coronary calcification. No mediastinal or hilar lymphadenopathy. Partially visu alized cholelithiasis with prominent gallstones in the gallbladder. CT/CT chest wo con [id number] IMPRESSION: 1. Mild chronic emphysematous change is stable. 2. Diffuse tree-in-bud opacities more prominent in the right middle lobe and b oth lower lobes is stable. 3. Previously described patchy opacities in the left lower lobe laterally have resolved. Posterior left lower lobe opacities have improved with a small amoun t of persistent infiltrate. 4. Stable interstitial fibrosis and tree-in-bud opacities in the right middle lobe. 5. Pleural thickening along the right lower lobe posteriorly measuring 1.6x 0. 8 cm appears unchanged. 6. Additional pleural thickening in the left upper lobe posteriorly along the mediastinum is also unchanged. This area measures approximately 1.0 x 3.5 cm. 7. No mediastinal or hilar lymphadenopathy. 8. Cholelithiasis. Recommend further evaluation with ultrasound.
== END 2020-05-08 09:48 | disposition home or self-care (01) ==
LOC: RADWPI 09:48
PROVIDERS: Family Provider Internal Medicine; PCP Internal Medicine; Visit Provider Internal Medicine Critical Care Medicine
DX: R91.8 Other nonspecific abnormal finding of lung field (principal); J84.10 Pulmonary fibrosis, unspecified; K80.20 Calculus of gallbladder without cholecystitis without obstruction
CPT/HCPCS: 71250

== ENCOUNTER 2020-05-21 09:51 | Outpatient (CLI) | payer OTHER, MEDICARE, SELFPAY ==
[2020-05-21 11:15] LABS: Basophils % 0.3 %; Eosinophils # 0.3 10^3/uL (0.0-0.8); Eosinophils % 2.8 %; Hematocrit 40.1 % (42.0-52.0); Hemoglobin 12.3 g/dL (11.7-16.6); Lymphocytes % 18.4 %; Mean Corpuscular HGB Conc 30.7 g/dL (30.0-36.0); Mean Corpuscular Hemoglobin 30.4 pg (28.0-34.0); Mean Platelet Volume 10.4 fL (7.4-10.4); Monocytes # 0.5 10^3/uL (0.2-0.9); Monocytes % 4.7 %; Neutrophils % 73.5 %; Nucleated Red Blood Cells % 0 %; Platelet Count 227 10^3/cmm (130-400); Red Blood Count 4.05 10^6/uL (4.1-5.3); Red Cell Distribution Width 13.4 % (12.1-15.1)
[2020-05-21 11:31] LABS: Alanine Aminotransferase 9 U/L (0-41); Albumin Level 3.9 g/dL (3.5-5.2); Alkaline Phosphatase 107 IU/L (40-130); Anion Gap 14.7 (5-19); Aspartate Amino Transferase 20 U/L (0-40); Blood Urea Nitrogen 34 mg/dL (8-23); Calcium 9.7 mg/dL (8.5-10.5); Carbon Dioxide 33 mmol/L (22-29); Chloride 94 mmol/L (98-107); Globulin 4.5 g/dL (1.3-4.6); Glucose 224 mg/dL (65-115); Osmolality Calculated 286 mOsm/kg (285-295); Potassium 5.7 mmol/L (3.5-5.1); Sodium 136 mmol/L (136-145); Total Bilirubin 0.3 mg/dL (0.15-1.2); Total Protein 8.4 g/dL (6.6-8.7)
[2020-05-21 15:39] LABS: Estmated Average Glucose 108; Hemoglobin A1C 5.4 % (4.0-6.0)
--- NOTE | 2020-05-21 20:13 | ONC FU_ITS ---
Dr. Hassan Patient Follow-Up Note Patient: Shawanda Weeks Unit #: [id number]: 1950 Dicatated By: Israel Hassan M.D.Date of Visit:May 21, 2020 Onc Med Follow-up/Prog Note Chief Complaint: Lung cancer. 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 His tonsillar cancer was initially diagnosed back in August of 2007. He was treated at [facility], and I did not receive complete records. The initial plan was to treat him with chemoradiation, but he was unable to tolerate either cisplatin or Erbitux, and he ended up being treated with radiation as a single modality. He completed treatment in January 2008. He developed multiple toxicities, requiring PEG tube for enteral alimentation because of recurrent aspiration. I had last seen him for a followup visit in January 2012. At that time there was no evidence of recurrence of the cancer. Subsequent to that visit he developed osteoradionecrosis of the right mandible and he ultimately did require surgery, which apparently included a bone graft. In the latter part of November 2014 he was admitted to the hospital with pneumonia. A CT pulmonary angiogram showed multifocal nodular interstitial infiltrates, but no evidence of pulmonary embolism. Also noted was a 2 x 2 x 4 cm focus of abnormal pleural-based soft tissue attenuation in the posterior medial aspect of the left upper hemithorax centered at the T4 level. There was suspected erosion of the base of the left fourth rib. There was moderate subcarinal and left infrahilar lymphadenopathy, felt to be nonspecific. The appearance of the lung lesion, though, was suspicious for neoplasm. He had a followup chest CT on 01/09/2015. This again showed a pleural-based neoplastic process in the posterior medial aspect of the left hemithorax, again with evidence of invasion of the origin of the left fourth rib. It appeared to have possible progression compared to the study in November. He underwent CT directed needle biopsy of the mass on 02/19/15. Pathology showed non-small cell carcinoma, favoring squamous cell carcinoma. He had further staging with PET/CT on 03/07/2015. That study showed a pleural-based mass in the costovertebral angle adjacent to the left side of the T3-T4 vertebral bodies with elevated SUV of 10.2. The tumor measured 2.2 x 3.0 cm. A 4 mm noncalcified pulmonary nodule in the right lower lobe was too small to characterize by PET. There was no evidence of any metastatic involvement, and there was no evidence of local/regional recurrence of the head/neck cancer. He underwent treatment with radiation concurrently with weekly carboplatin/Taxol chemotherapy. His treatment course was complicated by aspiration pneumonia, which necessitated PEG tube placement, and that did result in some treatment delay. He received his 6th weekly dose of chemotherapy on 04/21/2015. He completed radiation on 05/04/2015 to a total dose of 6660 cGy. He had a follow-up PET/CT in June 2015. It showed no evidence of recurrent disease in the head/neck area. A few right middle lobe pulmonary nodules were felt to be most consistent with posttreatment fibrotic changes. Right middle lobe airspace disease also was felt to be most likely posttreatment. There was no definite evidence of residual or recurrent disease. CT scan of the chest performed 08/09/2016 was suspicious for growth of previous pleural-based left upper lobe neoplastic mass lesion since 01/01/2016. Repeat chest CT performed on 12/14/2016 showed the left posteromedial apical pleural 9.5 x 19.4 mm soft tissue attenuation focus was similar in size to July of 2016, which previously measured 8.6 x 18.8 mm. Also the right lower lobe 4.4 mm medial segment non calcified nodule was unchanged. PET/CT on 12/17/2016 showed suspected pulmonary metastases in the left lower lobe. His restaging CT scans of the chest, abdomen, and pelvis on 02/11/2017 showed left lower lobe airspace infiltrate which was suspicious for pneumonia. On 03/24/2017 he ended up being admitted to the hospital with pneumonia. A modified barium swallow on 04/25/2017 showed that he aspirated with all food consistencies from thin liquids through pudding consistency. He was then seen by speech therapy. He was put on a pur???ed diet, and he was swallowing better and eating better. He had restaging CT [facility]. It showed worsening of findings at the left lung base which were felt to be suspicious for recurrence, but that was compared to previous study from August 2016. He had inadvertently been scheduled to also have a follow-up chest CT here which was done on 05/22/2017. That study was compared to the CT in January, and it did show significant improvement in the left lung. There was new groundglass attenuation in the left upper lobe for which follow-up was recommended. CT of the neck on 09/22/2017 showed a 1.4 cm asymmetrical density pattern in the left side of the neck superior to the level of the hyoid bone, possibly representing an enlarged lymph node or a small mass. Other findings appeared chronic. Chest CT showed increased intermediate density along the pleura in the posterior medial aspect of the left upper lung located superior to the level of the aortic arch and continuing posteriorly to the proximal aspect of the descending aorta. There was slightly increased compared to studies from April 2017 and August 2016. Pleural thickening involving the posterior aspect of the left lower hemithorax also had increased, suggesting neoplastic involvement. He had further evaluation with PET/CT on 09/30/2017. It showed FDG avid irregular buccal mucosal thickening on the left, SUV 5.2, possibly representing recurrent head/neck cancer. No FDG avid left lung mass was identified. There was resolution of the left lower lobe pulmonary nodule compared to the previous study from November 2016. However there was development of a new FDG avid cavitary nodule in the left lung base, possibly representing opportunistic infection or a new site of metastatic disease. I had seen him for a follow-up visit on 10/11/2017. At the time, he also had been found to have a fairly prominent skin cancer in the left preauricular area. After reviewing the PET/CT with the radiologist, it did appear that the area of uptake in the left bucca mucosa did not correspond to the skin lesion. He was then seen for ENT evaluation by Dr. Tolliver. He had further evaluation with MRI of the neck/face/orbit on 11/15/2017. It showed right carotid and submandibular space soft tissue with non-masslike enhancement. The reported differential included post-therapeutic changes and/or recurrent disease. In correlation with the PET/CT reports, recurrent disease was felt to be unlikely. There is asymmetry involving the left base of tongue and left lateral parapharyngeal and oropharyngeal mucosa-submucosa, also without definite associated mass and enhancement. This was felt to possibly represent recurrent neoplasm. There was no associated cervical or supraclavicular lymphadenopathy. I did not receive a note from Dr. Tolliver, but he apparently found no evidence of malignancy in the head/neck area. In the meantime, he had undergone Mohs surgery for the skin cancer on 11/13/2017. He was told they got it all . His other medical illnesses include type II diabetes and GERD. He has CT evidence of COPD. He is a nonsmoker, but he does have a long history of chewing tobacco. INTERIM HISTORY: On 12/17/2017 he was hospitalized with pneumonia after failing outpatient therapy. He also had evidence of protein calorie malnutrition. This was suspected to be due to chronic aspiration. On 12/18/2017 he underwent placement of PEG tube by Dr. Joe. Restaging PET/CT on 02/03/2018 was felt to have no evidence for recurrent or residual malignancy. It showed uptake in the left lower lobe infiltrate which appeared to be more likely inflammatory than malignant. Contrast-enhanced chest CT on 02/12/2018 showed persistent but stable left lower lobe opacification, felt to probably be pneumonia with slight improvement compared to the August study. There was stable medial left upper thorax pleural thickening. Subcentimeter hypodensities in the liver were stable and were noted to be FDG negative on the recent PET/CT. In October 2018 he was admitted to the hospital again with pneumonia. His chest CT on 12/10/2018 showed left lower lobe consolidation with significant improvement compared to the study from September 2018. New multilobar opacifications predominantly involving the right upper, middle, and lower lobes appear most consistent with inflammatory process or aspiration pneumonia. On 05/29/2019 he was again admitted to the hospital with pneumonia. He had acute hypoxic respiratory failure. He recovered uneventfully on antibiotic therapy. A restaging chest CT on 06/28/2019 showed foci of airspace consolidation in the left lower lobe, right lower lobe, and right middle lobe, all increase in the November 2018 study. Also noted were widespread areas of groundglass opacities in both lower lobes. The findings were felt to be consistent with pneumonia/pneumonitis. Left upper lobe and right lower lobe pulmonary nodules appeared stable. There was no evidence of mass lesion or neoplastic process. He continued on observation/expectant management. On 01/10/2020 he had another hospital admission for pneumonia, reportedly due to MRSA. He recovered uneventfully. He has continued outpatient followup with Dr. Menjivar. His repeat chest CT on 05/08/2020 showed improvement in left lower lobe opacitites. Tree-in-bud opacitites in the right middle lobe and in both lower lobes appeared stable. Pleural thickening along the right lower lobe and in the left upper lobe along the mediastinum appeared stable. There was no mediastinal or hilar lymphadenopathy noted. Overall, there is no evidence of recurrence/progression of the lung cancer. He is seen for a follow-up visit. He has been feeling pretty good. He has limited activity, but he is able to do light work. He is totally dependent on tube feeding for his nutritional intake, which he tolerates well. He has gained 15 pounds since October. He does not have fever or night sweats. He says his breathing is not real good, but he is using oxygen just as needed. He does not have much cough. He does not complain of chest pain. He does not attempt to take anything orally because of aspiration. He has no other GI or complaints. He has normal pain, which is fairly generalized. He has no focal neurologic symptoms. Medications: Albuterol Sulfate Aerosol Powder, Breath Activated Inhalation PRN, Budesonide-Formoterol Fumarate 1 (80-4.5 mcg/act) Aerosol Inhalation b.i.d., Cholecalciferol 1 (2000 Units) Tablet Oral daily, EQL One Daily Mens 1 Tablet Oral daily, Gabapentin 1 (400 mg) Capsule Oral t.i.d., Omeprazole 1 (20 mg) Capsule Delayed Release Oral daily, Oxycodone-Acetaminophen 2 (5-325 mg) Tablet Oral q 6 hours PRN, ProAir HFA 1 (108 (90 base) mcg/act) Aerosol, solution Inhalation four times a day Allergies: No Known Allergies. Review of Systems: Constitutional - He has been feeling pretty good, but he does have limited activity. He is getting all of his nutrition through tube feeding, which he tolerates well. He has gained 15 pounds over the past 6 months. He does not have fever or night sweats. ECOG score is 1, ENMT - No sinus congestion/drainage. No mouth sores. No sore throat or difficulty swallowing, Hematologic/Lymphatic - He has easy bruising, Respiratory - His breathing is not real good, but he uses oxygen just as needed. No cough. No pleuritic pain or hemoptysis, Cardiovascular - No angina pain. No palpitations, Gastrointestinal - No nausea or vomiting. No heartburn or acid reflux. No diarrhea or constipation. No blood in the stool or black stools, Genitourinary (M) - No dysuria or hematuria. No urinary frequency. No urgency or incontinence, Musculoskeletal - He has his normal generalized pain, Integumentary - No skin rash, Neurologic - No headache or dizziness. No numbness or tingling. No other focal neurologic symptoms, Psychiatric - No anxiety or depression. No insomnia. Vital Signs: Performed on May 21, 2020 10:17 Height - 67.00 in Weight - 120.4 lbs (HIGH) BSA - 1.63 sq.m BMI - 18.86 Temperature - 99.4 F (HIGH) Pulse - 94 /min Respiration - 20 /min BP - 110/52 mm(hg) O2 Sat - 90 % (LOW) Pain - 7 Physical Examination: Constitutional - He appears generally frail but not acutely ill, Eyes - Sclerae nonicteric. Conjunctivae clear, ENMT - His mouth is dry. There are no lesions noted in the oral cavity, Neck - There is induration on both sides of the neck. There is no mass palpable, Hematologic/Lymphatic - No cervical, clavicular, or axillary adenopathy noted, Respiratory - Lungs show diminished air movement with scatttered rales bilaterally, Cardiovascular - Heart rhythm is regular. There is no murmur, gallop, or rub noted, Abdomen - Soft. Liver and spleen are not enlarged. There is no abdominal mass or ascites noted and there is no inguinal adenopathy, Extremities - No edema, Neurologic - No focal neurologic deficits noted. Impression: 1. 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 He had multiple complications from the radiation, but there has been no documented recurrence of the tonsillar cancer. 2. In January 2015 he was confirmed by needle biopsy to have nonsmall cell cancer involving the upper lobe of the left lung. By clinical evaluation his disease was stage IIIA (T4, N0, M0), as there appeared to be involvement of the origin of the left 4th rib by CT scan. He underwent treatment with radiation concurrently with weekly carboplatin/Taxol chemotherapy. He completed radiation on 05/04/15 to a total dose of 6660 cGy. 3. He did require placement of a PEG tube due to aspiration, but he tolerated the treatment well otherwise. There was no definite evidence of residual or recurrent disease by followup PET/CT in June 2015. He subsequently was able to undergo removal of the PEG tube. His other medical illnesses include: 4. Type II diabetes. 5. GERD. 6. COPD. Patient has remained on observation/expectant management following completion of the radiation in April 2015. A surveillance CT scan on 08/09/2016 showed findings which were felt to be suspicious for growth of the pleural-based left upper lobe mass. His recent PET/CT was suspicious for pulmonary metastasis in the left lower lobe. Diagnostic chest CT in November, though, showed stable findings compared to the study in July. At that point he appeared stable clinically, and he continued observation/expectant management. Restaging CT scans in January 2017 showed evidence of infiltrate in the left lower lobe consistent with pneumonia. In February he ended up being admitted to the hospital with pneumonia. His barium swallow study from 04/25/2017 showed significant aspiration. He has since then been under the care of speech therapy, and he seems to be doing better on a pur???ed food diet. As of his follow-up visit in April 2017 he still had somewhat marginal performance status, but there was no clear evidence of recurrence/progression of the lung cancer by CT scan. His repeat CT scans on 09/22/2017 showed new cavitary mass of the left lung base. That area was felt to be suspicious for opportunistic infection or neoplastic involvement by PET/CT on 09/30/2017. The PET/CT also showed an area of uptake in the left buccal mucosa suspicious for recurrent head/neck cancer. In addition, he has a fairly large skin cancer in the left preauricular area. He subsequently was seen for ENT evaluation by Dr. Tolliver. He apparently found no evidence of recurrent cancer in the head/neck area. He underwent Mohs surgery for the skin cancer on 11/13/2017. It apparently was completely resected. In November 2017 he was admitted to the hospital with recurrent pneumonia. This is presumed to be due to aspiration. He underwent PEG tube placement.during subsequent follow-up he had shown gradual improvement in his performance status, though he did require hospitalization again in April 2018 and in October 2018. His chest CT on 12/10/2018 showed improved left lower lobe consolidation but with new multilobar opacifications compared to the previous study in September 2018. This was suspected to be an inflammatory process. In May 2019 he was again admitted the hospital with pneumonia. His follow-up chest CT on 06/28/2019 showed evidence of pneumonia/pneumonitis in multiple lobes, but no obvious progression of the lung cancer. At that point he was mildly anemic again, and he was given further parenteral iron replacement with 2 additional infusions of Injectafer. In December 2019 he had another hospital admission for pneumonia, reportedly due to MRSA. He had gradual recovery following antibiotic therapy. Overall, during his follow-up he has continued to have fairly marginal performance status. His clinical course has been complicated by recurrent episodes of aspiration pneumonia, which have continued even with his nutrition administered solely by tube feeding. However, there is been no evidence of recurrence of the head/neck cancer, and thus far there has been no recurrence/progression of the lung cancer. Plan: He remains on observation/expectant management. I will recheck his laboratory studies today. I will tentatively plan a follow-up visit in 6 months. Signed By: Israel Hassan M.D. <<Signature on File>>
== END 2020-05-21 09:52 | disposition home or self-care (01) ==
PROVIDERS: Visit Provider Internal Medicine Medical Oncology
DX: Z08 Encounter for follow-up examination after completed treatment for malignant neoplasm (principal); Z85.118 Personal history of other malignant neoplasm of bronchus and lung; Z85.819 Personal history of malignant neoplasm of unspecified site of lip, oral cavity, and pharynx; E11.9 Type 2 diabetes mellitus without complications; K21.9 Gastro-esophageal reflux disease without esophagitis; J44.9 Chronic obstructive pulmonary disease, unspecified; Z92.3 Personal history of irradiation; Z92.21 Personal history of antineoplastic chemotherapy; Z85.828 Personal history of other malignant neoplasm of skin; Z87.01 Personal history of pneumonia (recurrent); Z93.1 Gastrostomy status
CPT/HCPCS: 36415; 80053; 83036; 85025; 99214